=== PATIENT | male | born 1975 | race Caucasian/White ===

== ENCOUNTER → 2017-10-22 09:57 | Outpatient (CLI) | payer BC, SELFPAY ==
--- NOTE | 2017-10-22 10:10 | XR_ITS ---
EXAM: XR lumbar spine min 4V HISTORY: ITS.REASON: LBP RT SIDE ORDERING PHYSICIAN: Marlo Syed MD PATIENT AGE: 42 years COMPARISON: None FINDINGS: Normal alignment. No fracture or dislocation. No lytic or blastic change. There is mild degenerative disc disease at L2-L3. Small endplate osteophytes are present at this level. IMPRESSION: Degenerative disc disease L2-L3 otherwise negative lumbar spine
== END ==
PROVIDERS: PCP Family Medicine; Visit Provider Family Medicine
DX: M54.5 Low back pain (principal)
CPT/HCPCS: 72110

== ENCOUNTER 2017-11-29 13:24 | Observation (INO) ==
--- NOTE | 2017-11-29 13:31 | Emergency Department Note ---
ED Disposition Clinical Impression: Strain of lumbar region Qualifiers: Encounter type: initial encounter Qualified Code(s): S39.012A - Strain of muscle, fascia and tendon of lower back, initial encounter Sciatica Qualifiers: Laterality: right Qualified Code(s): M54.31 - Sciatica, right side Disposition: Admitted as Observation Condition on Discharge: Good Instructions: DI for Back Pain With Sciatica Additional Instructions: Rx Flexeril, Mobic: do NOT take Ibuprofen or Naproxen/Aleve with this medication ! Rx Medrol dosepak. See Dr. Trevino for any narcotics refills; you may take your narcotic pill up to four times a day unless otherwise instructed by the prescriber. Prescriptions: Cyclobenzaprine HCl [Flexeril 10mg tablet] 10 mg PO TID PRN #6 tab PRN Reason: Muscle Spasm Meloxicam [Mobic 7.5mg Tab] 7.5 mg PO BID #30 tab methylPREDNISolone [Medrol] 4 mg PO DAILY #1 tab.ds.pk methylPREDNISolone [Medrol] 4 mg PO DAILY #1 tab.ds.pk Referrals: Yisel Trevino MD [Primary Care Provider] - Time of Disposition: 15:07 - Critical Care Critical Care Time: No Attestation: On 11/29/17, the high probability of a clinically significant, sudden or life threatening deterioration of the following system(s) required my full and direct attention, intervention and personal management. The time I documented below is in addition to time spent performing reported procedures but includes the following listed in this critical care notation. Medical Decision Making - Aramis Inquiry Pt receiving controlled substance: No Vital Signs: 11/29/17 13:26 11/29/17 14:25 Temperature 97.6 F 98.7 F Temperature Source Oral Oral Pulse Rate [Right Radial] 76 69 Respiratory Rate 24 18 Blood Pressure [Right Arm] 160/92 163/105 Blood Pressure Mean [Right Arm] 114 124 Blood Pressure Source [Right Arm] Automatic Cuff Blood Pressure Position [Right Arm] Supine 02 Sat by Pulse Oximetry 99 98 Orders (Tests/Meds): ED MEDICATIONS Discontinued Medications Generic Name Dose Route Start Last Admin Trade Name Freq PRN Reason Stop Dose Admin Cyclobenzaprine HCl 10 mg 11/29/17 13:35 11/29/17 13:36 Flexeril 10mg Tablet PO 11/29/17 13:36 10 mg ONCE ONE Administration Cyclobenzaprine HCl 10 mg 11/29/17 13:32 11/29/17 13:48 Flexeril 10mg Tablet PO 11/29/17 13:33 Not Given ONCE ONE Lisinopril 10 mg 11/29/17 14:46 11/29/17 14:47 Zestril 10mg Tablet PO 11/29/17 14:47 10 mg ONCE ONE Administration Methylprednisolone Sodium Succinate 125 mg 11/29/17 13:42 11/29/17 13:49 Solu-Medrol 125mg/2ml Vial IM 11/29/17 13:43 125 mg ONCE ONE Administration Morphine Sulfate 4 mg 11/29/17 13:57 11/29/17 14:00 Morphine 4mg/Ml Syringe IM 11/29/17 13:58 4 mg ONCE ONE Administration Ondansetron HCl 4 mg 11/29/17 13:58 11/29/17 14:00 Zofran 4mg Odt SL 11/29/17 13:59 4 mg ONCE ONE Administration - Physician Consults Physician Consulted: Dr. Syed Reason -: Pt condition Comment/Response: Dr. Syed will contact care management: consideration for admission Reason -: Admission - Reevaluation(s) Time: 14:15 (No relief) Reevaluation #2: 7621: still no relief after having had NSAIDs [employer], muscle relaxant, narcotic with Zofran, steroids, flexion of legs. Patient having difficulty turning in bed due to pain and spasm. Remains neurologically intact; has been able to use urinal but unable to stand or walk due to pain level. Consideration for admission. Recent MRI per PCP office shows L4 ner root compression plus stenosis ; MRI was done at [place]. Additional Reevaluation(s): 15:06: patient still unable to ambulate, but is getting a small amount of relief s/p multiple meds given. Will go ahead and admit for pain control/ inability to ambulate. Is neurologically intact. Back Pain HPI - General Chief Complaint: Back Pain/Injury Stated Complaint: BACK PAIN Time Seen by Provider: 11/29/17 13:28 Mode of Arrival: EMS Source of Information: Patient Limitations: No Limitations - History of Present Illness HPI Narrative: Reports lower lumbar pain radiating to right leg and right foot/toes for the past several weeks; has already had an MRI per PCP Dr. Trevino and has a f/u appointment with Dr. Porter for evaluation next week. No acute changes. No loss of bowel or bladder function. Initial event was lifting at home; he is already on narcotics, out of muscle relaxers, took four Aleve this AM with no relief and having more spasms today. Denies syncope. Has intermittently been on steroids with a lot of relief. He is no longer on them now. Onset (ago): week(s) Duration: constant Similar Symptoms Previously: Yes Location: lumbar spine Severity: mild Quality: dull Radiation: right leg Relieving factors: supine Exacerbating factors: movement, sitting upright Context: while lifting Associated symptoms: denies other symptoms Treatments prior to arrival: NSAIDS, prescription analgesics - Related Data Previous Rx's Medication Instructions Recorded Cyclobenzaprine HCl [Flexeril 10mg 10 mg PO TID PRN #6 tab 11/29/17 tablet] Meloxicam [Mobic 7.5mg Tab] 7.5 mg PO BID #30 tab 11/29/17 methylPREDNISolone [Medrol] 4 mg PO DAILY #1 tab.ds.pk 11/29/17 methylPREDNISolone [Medrol] 4 mg PO DAILY #1 tab.ds.pk 11/29/17 Allergies Allergy/AdvReac Type Severity Reaction Status Date / Time amoxicillin Allergy Intermediate Rash Verified 11/29/17 13:32 [facility] History I have reviewed the patient's past medical history: Yes ROS Obtained: Yes All systems reviewed & no additional complaints - Musculoskeletal Musculoskeletal: Reports system reviewed and no additional complaints, except as docu - Neurologic Neurologic: Reports system reviewed and no additional complaints, except as docu Physical Exam - General General appearance: alert, in no apparent distress - Head Head exam: atraumatic, normocephalic, normal inspection - Eye Eye exam: Present: normal appearance, PERRL, EOMI - ENT ENT exam: Present: mucous membranes moist - Neck Neck exam: Present: normal inspection, full ROM, trachea midline. Absent: tenderness, meningismus, lymphadenopathy - Chest Chest inspection: Present: normal inspection, symmetric chest wall rise. Absent : tenderness - Respiratory Respiratory exam: Present: normal lung sounds bilaterally. Absent: respiratory distress - Cardiovascular Cardiovascular exam: Present: regular rate, normal rhythm. Absent: JVD - Abdominal Exam Abdominal exam: Present: soft, normal bowel sounds. Absent: distention, tenderness, guarding - Extremities Exam Extremities exam: Present: normal inspection, full ROM, normal capillary refill. Absent: tenderness, calf tenderness - Back Exam Back exam: Present: normal inspection, tenderness, muscle spasm, straight leg raise (R) (pos SLT on R). Absent: vertebral tenderness - Neurological Exam Neurological exam: Present: alert, oriented X3, reflexes normal. Absent: motor sensory deficit - Psychiatric Psychiatric exam: Present: normal affect, normal mood - Skin Skin exam: Present: warm, dry, intact, normal color - Lymphatic Lymphatic Findings: no adenopathy
--- NOTE | 2017-11-29 16:15 | History & Physical Report ---
*Admission Date: 11/29/17 <Donna Jim 11/29/17 16:20> *Chief complaint: low back pain <Donna Jim 11/29/17 16:20> *History of present illness: Mr. Sotelo is a 42yo male who was seen in the office of [facility] on 10/21/17 with low back pain with radiculopathy to the right leg. 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 He was given a rx for steroids and flexeril and an x-ray was ordered showing DDD. His pain continued, therefore he had an MRI that showed a moderate to large foraminal disc protrusion at L4-5 with right neural foraminal stenosis and compression of the right L4 nerve root. He was seen in the office again on 11/07 and started on zanaflex, indomethacin, and prednisone. A consult was ordered for neurosurgery , however, the neurosurgery office never contacted the patient. He came to the office again on 11/25/17 and was given norco and a depo-medrol shot. An appt was scheduled with Dr. Porter for 12/05/17. The patient states last night, the pain became so bad he was unable to walk. He presented to the ER today for severe pain and was admitted for pain control. <Donna Jim 12/02/17 14:43> [facility] History Medical History: Reports:: Hyperlipidemia, Hypertension Denies:: Cancer, Diabetes Mellitus Type 1, Diabetes Mellitus Type 2, MRSA < Donna Jim 11/29/17 16:20> Other Surgeries: Yes: Hernia Repair <Donna Jim 11/29/17 16:20> Amputation: No <Donna Jim 11/29/17 16:20> - *Social History Smoking Status: Current every day smoker <Donna Jim 11/29/17 16:20> Tobacco Type: cigarettes <Donna Jim 11/29/17 16:20> # Packs/Day (cigarettes): 2 <Donna Jim 11/29/17 16:20> Alcohol Intake: never <Donna Jim 11/29/17 16:20> - Psychiatric History Expresses thoughts of harming self/others: None <Donna Jim 11/29/17 16: 20> Suicide Plan Description: No Plan <Donna Jim 11/29/17 16:20> *Family Hx:: Cancer, Hypertension <Donna Jim 11/29/17 16:20> Review of Systems - Constitutional Denies chills, Denies fever(s) <Donna Jim 11/29/17 16:20> - Eyes Denies blurry vision, Denies double vision <Donna Jim 11/29/17 16:20> - ENT Denies nasal congestion, Denies sore throat <Donna Jim 11/29/17 16:20> - *Cardiovascular Denies chest pain, Denies irregular heart rhythm <Donna Jim 11/29/17 16: 20> - *Respiratory Reports shortness of breath, Denies cough <Donna Jim 11/29/17 16:20> - *Gastrointestinal Denies abdominal pain, Denies loose stools, Denies nausea, Denies vomiting < Donna Jim 11/29/17 16:20> - *Genitourinary Denies difficulty urinating, Denies painful urination <Donna Jim 16:20> - *Musculoskeletal Reports joint pain (low back with right radiculopathy) <Donna Jim 14:43> - *Neurologic Reports weakness (right leg), Denies headache(s), Denies dizziness <Donna Jim 11/29/17 16:20> Meds Home Medications Medication Instructions Recorded Confirmed Type Albuterol Sulfate [Albuterol HFA 2 puffs IH QIDP PRN 11/29/17 11/29/17 History Inhaler] Cetirizine HCl 10 mg PO DAILY 11/29/17 11/29/17 History Cholecalciferol (Vitamin D3) 50,000 units PO WEEKLY 11/29/17 11/29/17 History [Vitamin D3 50,000 unit Cap] Fluticasone Propionate 1 spray NOSTRIL-B DAILY 11/29/17 11/29/17 History Lisinopril/Hydrochlorothiazide 10 - 12.5 mg PO DAILY 11/29/17 11/29/17 History [Lisinopril-Hctz 10-12.5 mg Tab] Simvastatin 20 mg PO HS 11/29/17 11/29/17 History buPROPion HCl [Wellbutrin SR 150mg 150 mg PO BID 11/29/17 11/29/17 History Tablet] <KunalMarlo - 12/04/17 16:23> Allergies Allergy/AdvReac Type Severity Reaction Status Date / Time amoxicillin Allergy Intermediate Rash Verified 11/29/17 13:32 <KunalMarlo Swapnil - 12/04/17 16:23> Exam Vital signs and Labs for Last 24 Hours: Temp Pulse Resp BP Pulse Ox 98.3 F 81 20 134/64 96 11/29/17 20:00 11/29/17 20:00 11/29/17 20:00 11/29/17 20:00 11/29/17 20:00 <KunalMarlo Swapnil - 12/04/17 16:23> Temp Pulse Resp BP Pulse Ox 97.2 F L 65 22 162/99 98 11/29/17 16:00 11/29/17 16:00 11/29/17 16:00 11/29/17 16:00 11/29/17 16:00 <Donna Jim 11/29/17 16:20> I & O for Last 24 hours: Intake & Output 11/27/17 11/28/17 11/29/17 11/30/17 11:59 11:59 11:59 11:59 Weight 268 lb 8 oz <Marlo Syed - 12/04/17 16:23> Intake & Output 11/27/17 11/28/17 11/29/17 11/30/17 11:59 11:59 11:59 11:59 Weight 268 lb 8 oz <Donna Jim 11/29/17 16:20> - Constitutional moderate distress (in pain) <Donna Jim 11/29/17 16:20> - *Routine HEENT Exam Head: Present: normocephalic, atraumatic <Donna Jim 11/29/17 16:20> Eye: Present: EOMI <Donna Jim 11/29/17 16:20> ENT: Present: mucous membranes dry <Donna Jim 11/29/17 16:20> - *Routine Neck Exam Present: supple, full ROM <Donna Jim 11/29/17 16:20> - *Routine Respiratory Exam Present: CTA bilaterally <Donna Jim 11/29/17 16:20> - *Routine Cardiovascular Exam Present: RRR <Donna Jim 11/29/17 16:20> - *Routine Abdominal Exam Present: soft, normoactive bowel sounds. Absent: tenderness <Donna Jim 11/29/17 16:20> - *Routine Extremities Exam Absent: edema <Donna Jim 11/29/17 16:20> - Routine Back/Spine/Pelvis Exam Back/Spine: Present: vertebral tenderness (along lower lumbar spine), abnormal straight leg raise (on the right) <Donna Jim 12/02/17 14:43> - *Routine Skin Exam Present: intact <Donna Jim 11/29/17 16:20> - *Routine Neurological Exam Present: alert <Donna Jim 11/29/17 16:20> Assessment and Plan (1) Lumbar disc herniation with radiculopathy Status: Acute Category: Medical Code(s): M51.16 - Intervertebral disc disorders with radiculopathy, lumbar region (2) Uncontrolled pain Status: Acute Category: Medical Code(s): R52 - Pain, unspecified (3) Hypertension Status: Chronic Category: Medical Code(s): I10 - Essential (primary) hypertension (4) Hyperlipidemia Status: Chronic Category: Medical Code(s): E78.5 - Hyperlipidemia, unspecified <Donna Jim 12/02/17 14:42> (1) Lumbar disc herniation with radiculopathy Status: Acute Category: Medical Code(s): M51.16 - Intervertebral disc disorders with radiculopathy, lumbar region (2) Uncontrolled pain Status: Acute Category: Medical Code(s): R52 - Pain, unspecified (3) Hypertension Status: Chronic Category: Medical Code(s): I10 - Essential (primary) hypertension (4) Hyperlipidemia Status: Chronic Category: Medical Code(s): E78.5 - Hyperlipidemia, unspecified <Marlo Syed 12/04/17 16:23> - Assessment and plan all Dx Assessment and Plan for all problems:: Concur with above assessment and plan. <Marlo Syed - 11/29/17 21:07> Patient has been started on morphine, toradol, flexeril, and a nicotine patch. Will restart his BP medication as well. <Donna Jim - 11/29/17 16:20>
--- NOTE | 2017-11-30 08:58 | Progress Note ---
Internal Medicine - PN: Subj *Date: 11/30/17 *Time: 08:53 Interval history: Rested fairly well with much less pain. Only required one dose of Morphine during the night. Has been up to BR and able to ambulate OK. Exam Vital signs and Labs for Last 24 Hours: Temp Pulse Resp BP Pulse Ox 97.4 F L 84 16 135/58 95 11/30/17 08:00 11/30/17 08:00 11/30/17 08:00 11/30/17 08:00 11/30/17 08:00 I & O for Last 24 hours: Intake & Output 11/27/17 11/28/17 11/29/17 11/30/17 11:59 11:59 11:59 11:59 Intake Total 280 / 280 Balance 280 / 280 Weight 268 lb 8 oz - Constitutional no acute distress - Routine Back/Spine/Pelvis Exam Comments: mild tenderness in rigth SI area. ROM improved - *Routine Neurological Exam no focal weakness Assessment and Plan (1) Lumbar disc herniation with radiculopathy Current visit: Yes Status: Acute Category: Medical Code(s): M51.16 - Intervertebral disc disorders with radiculopathy, lumbar region (2) Uncontrolled pain Current visit: Yes Status: Acute Category: Medical Code(s): R52 - Pain, unspecified (3) Hypertension Current visit: Yes Status: Chronic Category: Medical Code(s): I10 - Essential (primary) hypertension (4) Hyperlipidemia Current visit: Yes Status: Chronic Category: Medical Code(s): E78.5 - Hyperlipidemia, unspecified - Assessment and plan all Dx Assessment and Plan for all problems:: Pain improved after steroids. Stable for discharge home today. He will keep appt with Dr. Porter on to evaluate for surgery. His job is fairly sedentary working at a desk. SHould be OK to RTW on Saturday.
--- NOTE | 2017-12-01 15:26 | Discharge Summary ---
General - General Admission date: 11/29/17 Discharge date: 11/30/17 HPI HPI: Mr. Sotelo is a 42yo male who was seen in the office of [facility] on 10/21/17 with low back pain with radiculopathy to the right leg. 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 He was given a rx for steroids and flexeril and an x-ray was ordered showing DDD. His pain continued, therefore he had an MRI that showed a moderate to large foraminal disc protrusion at L4-5 with right neural foraminal stenosis and compression of the right L4 nerve root. He was seen in the office again on 11/07 and started on zanaflex, indomethacin, and prednisone. A consult was ordered for neurosurgery , however, the neurosurgery office never contacted the patient. He came to the office again on 11/25/17 and was given norco and a depo-medrol shot. An appt was scheduled with Dr. Porter for 12/05/17. The patient states last night, the pain became so bad he was unable to walk. He presented to the ER today for severe pain and was admitted for pain control. Hospital Course Hospital Course: The patient was started on morphine, toradol, flexeril, and a nicotine patch. His BP medication was restarted as well. He rested fairly well with much less pain. He only required one dose of the Morphine during the night. He was able to ambulate okay. His pain improved after the steroids and he was stable for discharge home. He will keep his appt with Dr. Porter on to evaluate for surgery. Objective Vital signs: Temp Pulse Resp BP Pulse Ox 97.4 F L 84 16 135/58 95 11/30/17 08:00 11/30/17 08:00 11/30/17 08:00 11/30/17 08:00 11/30/17 08:00 Narrative: - Constitutional moderate distress (in pain) - *Routine HEENT Exam Head: Present: normocephalic, atraumatic Eye: Present: EOMI ENT: Present: mucous membranes dry - *Routine Neck Exam Present: supple, full ROM - *Routine Respiratory Exam Present: CTA bilaterally - *Routine Cardiovascular Exam Present: RRR - *Routine Abdominal Exam Present: soft, normoactive bowel sounds. Absent: tenderness - *Routine Extremities Exam Absent: edema - Routine Back/Spine/Pelvis Exam Back/Spine: Present: vertebral tenderness (along lower lumbar spine), abnormal straight leg raise (on the right) - *Routine Skin Exam Present: intact - *Routine Neurological Exam Present: alert DS: Diagnosis - Discharge Diagnosis (1) Lumbar disc herniation with radiculopathy Status: Acute (2) Uncontrolled pain Status: Acute (3) Hypertension Status: Chronic (4) Hyperlipidemia Status: Chronic Discharge Plan - Patient Discharge Instructions ACTIVITY: Limited activity, No heavy lifting DIET: continue same diet Patient Instructions: DI for Back Pain With Sciatica - Follow up Plan Follow up with: Kamran Porter [Referring] - 12/05/17 Disposition: Home, Self-[facility] Medications: Home Medications Medication Instructions Recorded Confirmed Type Albuterol Sulfate [Albuterol HFA 2 puffs IH QIDP PRN 11/29/17 11/29/17 History Inhaler] Cetirizine HCl 10 mg PO DAILY 11/29/17 11/29/17 History Cholecalciferol (Vitamin D3) 50,000 units PO WEEKLY 11/29/17 11/29/17 History [Vitamin D3 50,000 unit Cap] Fluticasone Propionate 1 spray NOSTRIL-B DAILY 11/29/17 11/29/17 History Lisinopril/Hydrochlorothiazide 10 - 12.5 mg PO DAILY 11/29/17 11/29/17 History [Lisinopril-Hctz 10-12.5 mg Tab] Simvastatin 20 mg PO HS 11/29/17 11/29/17 History buPROPion HCl [Wellbutrin SR 150mg 150 mg PO BID 11/29/17 11/29/17 History Tablet] Prescriptions/Medication Reconciliation: New predniSONE [Prednisone 20mg Tab] 20 mg PO BID #12 tab Tizanidine HCl [Zanaflex] 4 mg PO TID #30 tablet Oxycodone HCl/Acetaminophen [Percocet 5/325mg tablet] 1 tab PO Q4HP PRN #20 tablet PRN Reason: Severe Pain Continue Fluticasone Propionate 1 spray NOSTRIL-B DAILY Cetirizine HCl 10 mg PO DAILY buPROPion HCl [Wellbutrin SR 150mg Tablet] 150 mg PO BID Albuterol Sulfate [Albuterol HFA Inhaler] 2 puffs IH QIDP PRN PRN Reason: Shortness Of Breath Cholecalciferol (Vitamin D3) [Vitamin D3 50,000 unit Cap] 50,000 units PO WEEKLY Simvastatin 20 mg PO HS Lisinopril/Hydrochlorothiazide [Lisinopril-Hctz 10-12.5 mg Tab] 10 - 12.5 mg PO DAILY Discontinued Hydrocod/Acet 5/325 mg [Shingleton 5/325mg tablet] 5 - 325 mg PO TID PRN PRN Reason: PAIN Indomethacin [Indomethacin] 50 mg PO TID
== END 2017-11-30 09:28 | disposition home or self-care (01) ==
LOC: ER 13:24 → 2ND 13:24
PROVIDERS: ADMIT Family Medicine; ATTEND Family Medicine

== ENCOUNTER → 2017-12-05 14:27 | Outpatient (POV) | payer BC, SELFPAY | PROVIDERS: PCP Family Medicine; Visit Provider Neurological Surgery | DX: Z00.00 Encounter for general adult medical examination without abnormal findings (principal) ==

== ENCOUNTER → 2021-04-26 16:43 | Outpatient (CLI) | payer BC, SELFPAY ==
[2021-04-26 17:18] LABS: Basophils # 0.1 K/mm3 (0-0.2); Basophils % 0.9 % (0.1-2.0); Eosinophils # 0.3 K/mm3 (0.0-0.4); Eosinophils % 4.1 % (0.1-12.0); Hematocrit 43.4 % (42.0-52.0); Hemoglobin 14.6 g/dL (14.1-18.0); Lymphocytes # 2.4 K/mm3 (0.7-4.5); Lymphocytes % 30.2 % (10-50); Mean Corpuscular HGB Conc 33.7 g/dL (31.8-35.4); Mean Corpuscular Hemoglobin 30.8 pg (27.0-31.2); Mean Corpuscular Volume 91.6 fl (80-94); Mean Platelet Volume 8.1 fl (7.4-10.4); Monocytes # 0.6 K/mm3 (0.1-1.0); Monocytes % 7.4 % (1.7-9.3); Neutrophils # 4.6 K/mm3 (1.8-7.8); Neutrophils % 57.4 % (37.0-80.0); Platelet Count 400 K/mm3 (142-424); Red Blood Count 4.74 M/mm3 (4.60-6.20); Red Cell Distribution Width 13.7 % (11.5-17.5); White Blood Count 7.9 K/mm3 (4.8-10.8)
== END ==
PROVIDERS: PCP Family Medicine; Visit Provider Nurse Practitioner
DX: Z20.822 Contact with and (suspected) exposure to COVID-19 (principal)
CPT/HCPCS: 85025; 87275; 87276; U0003

== ENCOUNTER → 2021-09-11 11:14 | Outpatient (CLI) | payer BC, SELFPAY ==
[2021-09-11 12:25] LABS: Basophils # 0.1 K/mm3 (0-0.2); Basophils % 1.8 % (0.1-2.0); Eosinophils # 0.1 K/mm3 (0.0-0.4); Eosinophils % 2.3 % (0.1-12.0); Hematocrit 47.1 % (42.0-52.0); Hemoglobin 15.4 g/dL (14.1-18.0); Lymphocytes # 1.1 K/mm3 (0.7-4.5); Lymphocytes % 19.1 % (10-50); Mean Corpuscular HGB Conc 32.8 g/dL (31.8-35.4); Mean Corpuscular Hemoglobin 30.8 pg (27.0-31.2); Mean Corpuscular Volume 93.9 fl (80-94); Mean Platelet Volume 7.6 fl (7.4-10.4); Monocytes # 0.8 K/mm3 (0.1-1.0); Monocytes % 13.5 % (1.7-9.3); Neutrophils # 3.6 K/mm3 (1.8-7.8); Neutrophils % 63.3 % (37.0-80.0); Platelet Count 326 K/mm3 (142-424); Red Blood Count 5.02 M/mm3 (4.60-6.20); Red Cell Distribution Width 13.7 % (11.5-17.5); White Blood Count 5.7 K/mm3 (4.8-10.8)
== END ==
PROVIDERS: PCP Family Medicine; Visit Provider Family Medicine
DX: U07.1 COVID-19 (principal)
CPT/HCPCS: 36415; 85025; 87275; 87276; C9803; U0003; U0005

== ENCOUNTER 2022-05-02 18:33 | Emergency (ER) | payer BC, SELFPAY ==
--- NOTE | 2022-05-02 19:22 | EXP.UTC ---
Discharge Plan Disposition Patient Disposition: Home, Self-Care Condition: Good Prescriptions Prescriptions: New azithromycin [Zithromax] 250 mg tablet 250 mg PO UD DOSE PK Qty: 6 0RF Rx Instructions: Take two (2) tablets today, then one (1) tablet days #2 thru #5 benzonatate [benzonatate] 100 mg capsule 100 mg PO TIDP PRN (Reason: Cough) Qty: 30 0RF methylprednisolone 4 mg Tablets,Dose Pack 4 mg PO DIRECTED Qty: 21 0RF No Action cefdinir 300 mg capsule 300 mg PO BID 10 Days Qty: 20 0RF moxifloxacin 0.5 % drops 1 drp OP TID 7 Days Qty: 3 0RF lisinopril-hydrochlorothiazide 1 EACH tablet 10 - 12.5 mg PO DAILY cetirizine 10 MG tablet 10 mg PO DAILY Label Comments: TAKE 1 TABLET BY MOUTH EVERY DAY simvastatin 20 MG tablet 20 mg PO HS Label Comments: TAKE 1 TABLET BY MOUTH AT BEDTIME albuterol sulfate 18 GM HFA aerosol inhaler 2 puffs IH QIDP PRN (Reason: Shortness Of Breath) Label Comments: USE 2 PUFF(S) 4 TIMES A DAY AND NEEDED INHALED Referrals Follow up/Referrals: Kamilah Carvalho APRN [Primary Care Provider] - See instructions Activity Restrictions/Add. Instructions Additional Instructions/Restrictions: Drink plenty of fluids. Take tylenol or ibuprofen for pain or fever. Take the medications as directed. Follow up with your regular doctor. GO TO THE ER FOR ANY WORSENING SYMPTOMS Clinical Impressions Clinical Impression: Sinusitis Instructions Patient Instructions: Sinusitis, DI for Sinusitis Discharge ED Provider: Jonathan Lamar [facility] General Stated complaint: Cough,runny nose Time Seen by Provider: 05/02/22 19:22 History of Present Illness Provider Complaint: He is here with complaints of having chest and sinus congestion for the past 1 week. He has been coughing. He denies any fever or chills. Related Data Home Medications Medication Instructions Recorded Confirmed albuterol sulfate 90 mcg/actuation 2 puffs inhalation QIDP PRN 11/29/17 03/12/22 aerosol inhaler Shortness Of Breath cetirizine 10 mg tablet 10 mg PO DAILY ALLERGIES 11/29/17 03/12/22 lisinopril 10 10 - 12.5 mg PO DAILY High blood 11/29/17 03/12/22 mg-hydrochlorothiazide 12.5 mg pressure tablet simvastatin 20 mg tablet 20 mg PO HS Cholesterol 11/29/17 03/12/22 Previous Rx's Medication Instructions Recorded cefdinir 300 mg capsule 300 mg PO BID 10 days #20 caps 03/12/22 moxifloxacin 0.5 % eye drops 1 drp ophthalmic (eye) TID 7 days 03/12/22 #3 mL azithromycin 250 mg tablet 250 mg PO UD DOSE PK #6 tabs 05/02/22 (Zithromax) benzonatate 100 mg capsule 100 mg PO TIDP PRN Cough #30 caps 05/02/22 methylprednisolone 4 mg tablets in 4 mg PO DIRECTED #21 tabs 05/02/22 a dose pack Allergies Allergy/AdvReac Type Severity Reaction Status Date / Time No Known Allergies Allergy Verified 05/02/22 19:55 [facility] Social History Smoking Status: Current every day smoker tobacco type: cigarettes packs per day: 2 second hand exposure: Yes alcohol intake: never substance use type: denies use current occupational status: employed Travel in the last 8 weeks: None household members: spouse and children housing: house current occupational exposures/hazards: No caffeine: Yes ROS Obtained: Yes All systems reviewed & no additional complaints except as documented Constitutional Constitutional: Reports system reviewed and no additional complaints, except as documented, Denies chills and Denies fever(s) Eyes Eyes: Denies eye discharge ENT Ears, Nose, Mouth, and Throat: Denies dysphagia, Denies sore throat and Denies throat swelling Cardiovascular Cardiovascular: Denies chest pain and Denies dyspnea Respiratory Respiratory: Denies chest congestion, Denies cough and Denies dyspnea Gastrointestinal Gastrointestingal: Denies abdominal pain, constipation, diarr
[2022-05-02 19:42] VITALS: BP 127/80; PULSE 81; RESP 17; TEMP 36.7; O2SAT 97; BMI 38.0
[2022-05-02 20:12] VITALS: BP 127/80; PULSE 81; RESP 17; TEMP 36.7
== END 2022-05-02 20:12 | disposition home or self-care (01) ==
PROVIDERS: Emergency Provider Nurse Practitioner Family; PCP Nurse Practitioner
DX: J32.9 Chronic sinusitis, unspecified (principal)
CPT/HCPCS: 96372; 99212; G0463; J0696

== ENCOUNTER → 2022-10-16 23:35 | Outpatient (CLI) | payer BC, SELFPAY ==
[2022-10-16 19:04] LABS: Alanine Aminotransferase 51 U/L (12-78); Albumin Level 4.6 g/dl (3.5-5.0); Albumin/Globulin Ratio 1.5 (1.1-1.8); Alkaline Phosphatase 87 U/L (38-126); Anion Gap 5.3 mEq/L (5-15); Aspartate Amino Transferase 51 U/L (17-59); Bilirubin,Total 0.7 mg/dl (0.2-1.3); Blood Urea Nitrogen 10 mg/dl (9-20); Calcium 9.7 mg/dl (8.4-10.2); Carbon Dioxide 28 mmol/L (22.0-30.0); Chloride 106 mmol/L (98-107); Estimated Glomerular Filt Rate 91 ml/min (>60); GFR (African American) 110 ML/MIN (>60); Globulin 3.1 g/dL (1.3-3.2); Glucose 86 mg/dl (74-100); Potassium 4.3 mmoL/L (3.5-5.1); Sodium 135 mmol/L (136-145); Total Protein,Serum 7.7 g/dl (6.3-8.2)
[2022-10-16 19:35] LABS: Thyroid Stimulating Hormone 1.28 uIU/mL (0.465-4.68)
[2022-10-16 19:54] LABS: Vitamin B12 487 pg/mL (239-931)
== END ==
PROVIDERS: PCP Family Medicine; Visit Provider Family Medicine
DX: R53.83 Other fatigue (principal); I10 Essential (primary) hypertension
CPT/HCPCS: 80053; 82607; 84443

== ENCOUNTER → 2022-10-31 06:55 | Outpatient (CLI) | payer BC, SELFPAY ==
--- NOTE | 2022-10-31 06:56 | CA_ITS ---
APPROVED REPORT Exam: Exercise Treadmill Technologist: Danyell Adorno Ht: 6 ft 0 in Wt: 296 lbs BSA: 2.52 m2 HR: 67 bpm BP: 147/89 mmHg Indications: Chest pain, Fatigue Medical History Medications: Albuterol,,,,, CetIRIZINE,,,,, Lisinopril HCTZ,,,,, Stress Test Details Test: Raymond HR Resting HR: 79 bpm Max Heart Rate (APMHR): 174.820541 bpm Max HR Achieved: 128 bpm Target HR (85% APMHR): 147.354796 bpm % of APMHR: 73.56 Recovery HR: 79 bpm BP Resting BP: 147.0/89.0 mmHg Max BP: 212.0/90.0 mmHg Recovery BP: 160.0/99.0 mmHg ECG Resting ECG: Normal sinus rhythm, rightward axis, T wave abnormalities in leads III and aVF Clinical Exercise duration: 09:00 min Highest Stage Achieved: Exercise capacity: 10.1 METs Stress ECG Conclusion Patient walked 9:00 completing stage III of Brruce protocol. Test stopped due to shortness of air, knee pain. Symptoms: No chest pain. Arrhythmias/Ectopy: None ST-T Changes: Normal ST response to exercise. Conclusion: Normal GXT for heart rate achieved (74% of PM). Myoview images reported separately. Test Summary REST . . . . . . . Sitting REST . . . . . . . Standing REST 03:00 0.0 0.0 79 . 147/ 89 . . Stage 1 01:00 10.0 1.7 95 . . . . Stage 1 02:00 10.0 1.7 99 . . . . Stage 1 03:00 10.0 1.7 102 . 192/ 90 . . Stage 2 01:00 12.0 2.5 105 . . . . Stage 2 02:00 12.0 2.5 108 . . . . Stage 2 03:00 12.0 2.5 114 . 212/ 90 . . Stage 3 01:00 14.0 3.4 121 . . . . Stage 3 02:00 14.0 3.4 128 . . . . Stage 3 03:00 14.0 3.4 127 . . . Stop exercise at 09:00 RECOVERY 01:00 0.0 0.0 113 . . . . RECOVERY 02:00 0.0 0.0 98 . . . . RECOVERY 03:00 0.0 0.0 84 . 182/102 . . RECOVERY 04:00 0.0 0.0 85 . 182/ 99 . . RECOVERY 05:00 0.0 0.0 78 . 160/ 99 . . RECOVERY 05:18 0.0 0.0 80 . 160/ 99 . . Electronically signed by : Alvaro Petersen MD 10/31/2022 11:44:07
--- NOTE | 2022-10-31 06:56 | NM_ITS ---
APPROVED REPORT Exam: Nuclear Stress Test Indication: short of breath..fatigue Patient Location: Outpatient Stress Tech: Danyell Adorno MA Tech:VALENTÍN Chisholm RT(R)(N) Ht: 6 ft 0 in Wt: 290 lbs HR: 79 bpm BP: 147/89 mmHg BSA: 2.49 m2 TID: 0.94 History: short of breath ..fatigue Procedure: Patient exercised on Raymond protocol 9 minutes and sec, resting heart rate 79 bpm, resting blood pressure 147/89 mmHg, with exercise maximum heart rate achived was 128 bpm which is 74 % of the maximum predicted heart rate and blood pressure was 212/90 mmHg. Test was stopped due to soc. Patient denied any complaint of chest pain. Patient has Good exercise capacity, achieved 10.1 METs of workload on treadmill, the blood pressure response to exercise was Hypertensive. Electrocardiogram Resting electrocardiogram shows sinus rhythm, with exercise there is less than 1.[address] segment depression noted from the baseline EKG. The EKG portion of the exercise Myoview was nondiagnostic as patient did not achieve the target heart rate. Cardiac Stress and Resting SPECT Images: Cardiac Stress and Resting SPECT images were obtained using technetium 99m Myoview 30.9 mCi stress and 10.25 mCi at rest. Gated SPECT analysis of segmental wall motion and calculation of the ejection fraction also done. Prone images were also obtained. Cardiac stress and rest SPECT images show uniform myocardial activity without segmental perfusion abnormality, computer derived ejection fraction is 65% with no regional wall motion abnormality, right ventricle is normal size and contractility. Conclusion: 1. The EKG portion of the exercise Myoview is nondiagnostic as patient did not achieve the target heart rate, patient has good exercise capacity achieved 10.1 METs of workload on treadmill, the blood pressure response to exercise was hypertensive, there was no exercise-induced chest discomfort. 2. No scintigraphic evidence of reversible ischemia seen, computer derived ejection fraction is 65% with no regional wall motion abnormality, right ventricle is normal size and contractility. Electronically signed by : Alvaro Petersen MD 10/31/2022 12:30:45
== END ==
PROVIDERS: PCP Family Medicine; Visit Provider Family Medicine
DX: R07.9 Chest pain, unspecified (principal); R53.83 Other fatigue
CPT/HCPCS: 78452; 93017; A9502

== ENCOUNTER → 2022-11-16 16:39 | Outpatient (CLI) | payer BC, SELFPAY ==
--- NOTE | 2022-11-20 09:48 | PC.NURSE ---
HST DEVICE RETURNED - NOT ENOUGH DATA - THEREFORE NO CHARGE TO PATIENT - OFFICE NOTIFIED...
== END ==
PROVIDERS: PCP Family Medicine; Visit Provider Family Medicine
DX: G47.30 Sleep apnea, unspecified (principal)

== ENCOUNTER 2023-01-28 11:33 | Emergency (ER) | payer BC, SELFPAY ==
[2023-01-28 11:33] VITALS: BP 147/90; PULSE 77; RESP 16; TEMP 36.8; O2SAT 97; BMI 38.0
--- NOTE | 2023-01-28 11:43 | EXP.UTC ---
Discharge Plan Disposition Patient Disposition: Home, Self-Care Condition: Good Prescriptions Prescriptions: New benzonatate 100 mg capsule 100 mg PO TID PRN (Reason: cough) Qty: 30 0RF methylprednisolone [Medrol (Simone)] 4 mg tablets,dose pack See Rx Instructions .Route .COMPLEX 6 Days Qty: 21 0RF Rx Instructions: taper pack; amoxicillin-pot clavulanate 875-125 mg Tablet 1 tab PO Q12H Qty: 20 0RF No Action lisinopril-hydrochlorothiazide 10-12.5 mg tablet 1 tab PO DAILY Qty: 90 1RF clotrimazole-betamethasone 1-0.05 % cream 1 applic topical BID Qty: 60 1RF cetirizine 10 mg tablet See Rx Instructions .ROUTE .COMPLEX Qty: 90 3RF Dose Instruction: TAKE 1 TABLET BY MOUTH EVERY DAY FOR 90 DAYS Rx Instructions: TAKE 1 TABLET BY MOUTH EVERY DAY FOR 90 DAYS albuterol sulfate 18 GM HFA aerosol inhaler 2 puffs IH QIDP PRN (Reason: Shortness Of Breath) Label Comments: USE 2 PUFF(S) 4 TIMES A DAY AND NEEDED INHALED Referrals Follow up/Referrals: Yisel Trevino MD [Primary Care Provider] - See instructions Activity Restrictions/Add. Instructions Additional Instructions/Restrictions: *Monitor Temp, Over the counter Motrin or Tylenol as directed/as needed Tylenol every 4 hours and Motrin every 6 hours (as long as your family doctor has told you that you can take it) for fever or pain. and straight to ER if unable to lower temp less than 101.0 after medication given *Warm salt water gargles may help to soothe the throat *Throat Lozenges? *Warm fluids like tea with honey may help to soothe the throat? *Sleep elevated *Humidifier/Vaporizer Take medication as prescribed Follow up IMMEDIATELY for new or worsening symptoms or no Noticeable improvement over the next 48-72 hours. 911 for difficulty breathing or swallowing Clinical Impressions Clinical Impression: Sinusitis, Bronchitis Instructions Patient Instructions: DI for Sinusitis, Sinusitis, Acute Bronchitis Discharge ED Provider: Rosalinda Marroquin [facility] General Stated complaint: head and chest congestion Mode of Arrival: Ambulatory Source of Information: Patient Limitations: No Limitations Time Seen by Provider: 01/28/23 11:43 Description of Symptoms (Recalled from Triage Doc. by RN): Patient reports chest and sinus congestion since Saturday. HEENT Symptoms (Recalled from RN notes): Yes Resp Symptoms (Recalled from RN notes): No Skin Symptoms (Recalled from RN notes): No MS Symptoms (Recalled from RN notes): No Functional Status (Recalled from RN notes): wnl History of Present Illness Provider Complaint: Patient states that he started with sinus congestion and pressure about a week ago but got worse since Saturday States that he feels like it is trying to move into his chest area States that he has been blowing thick yellowish/green from his nose Denies productive cough and is an everyday smoker Related Data Home Medications Medication Instructions Recorded Confirmed albuterol sulfate 90 mcg/actuation 2 puffs inhalation QIDP PRN 11/29/17 01/15/23 aerosol inhaler Shortness Of Breath Previous Rx's Medication Instructions Recorded cetirizine 10 mg tablet See Rx Instructions .Route 01/11/23 .COMPLEX #90 tabs clotrimazole-betamethasone 1 1 applic topical BID foot 01/15/23 %-0.05 % topical cream dermatitis #60 grams lisinopril 10 1 tab PO DAILY High blood pressure 01/15/23 mg-hydrochlorothiazide 12.5 mg #90 tabs tablet amoxicillin 875 mg-potassium 1 tab PO Q12H #20 tabs 01/28/23 clavulanate 125 mg tablet benzonatate 100 mg capsule 100 mg PO TID PRN cough #30 caps 01/28/23 methylprednisolone 4 mg tablets in See Rx Instructions .Route 01/28/23 a dose pack (Medrol (Simone)) .COMPLEX 6 days #21 tabs Allergies Allergy/AdvReac Type Severity Reaction Status Date / Time No Known Allergies Allergy Verified 01/15/23 10:17 Worker's Comp Is this a Worker's Co
[2023-01-28 12:00] VITALS: BP 147/90; PULSE 77; RESP 16; TEMP 36.8; O2SAT 97
== END 2023-01-28 12:01 | disposition home or self-care (01) ==
PROVIDERS: Emergency Provider Nurse Practitioner; PCP Family Medicine
DX: J20.9 Acute bronchitis, unspecified (principal); J01.90 Acute sinusitis, unspecified; F17.210 Nicotine dependence, cigarettes, uncomplicated
CPT/HCPCS: 99212; 99214; G0463

== ENCOUNTER → 2023-02-01 18:08 | Outpatient (CLI) | payer BC, SELFPAY ==
--- NOTE | 2023-02-01 | XR_ITS ---
PROCEDURE INFORMATION: Exam: XR Chest Exam date and time: 02/01/2023 6:19 PM Age: 47 years old Clinical indication: Cough; Additional info: Bronchitis TECHNIQUE: Imaging protocol: Radiologic exam of the chest. Views: 2 views. COMPARISON: No relevant prior studies available. FINDINGS: Lungs: Normal pulmonary expansion. Pulmonary vasculature grossly normal. A 5 mm nodular density projects in the lateral left basilar distribution. Can not definitively confirm calcification radiographically. Recommend nonemergent noncontrast CT. No gross pulmonary infiltrates or edema pattern. Question mild central peribronchial thickening suspicious for mild changes of bronchitis/bronchiolitis. Pleural spaces: No pleural effusion. No pneumothorax. Heart/Mediastinum: Heart size normal. No tracheal/mediastinal shift. Bones/joints: No acute osseous abnormalities are identified. IMPRESSION: 1. Question mild changes of bronchitis. No gross pulmonary infiltrates. 2. There is a 5 mm nodular density projecting in the peripheral left lung base. Recommend nonemergent evaluation with noncontrast chest CT.
== END ==
LOC: RAD 18:09
PROVIDERS: PCP Family Medicine; Visit Provider Family Medicine
DX: J40 Bronchitis, not specified as acute or chronic (principal)
CPT/HCPCS: 71046

== ENCOUNTER → 2023-02-02 09:12 | Outpatient (CLI) | payer BC, SELFPAY ==
[2023-02-01 17:39] LABS: Adenovirus,PCR Not Detected (NotDetected); Bordetella Pertussis Not Detected (NotDetected); Chlamydophila Pneumoniae, PCR Not Detected (NotDetected); Coronavirus 19, PCR Not Detected (NotDetected); Coronavirus 229E Not Detected (NotDetected); Coronavirus NL63 Not Detected (NotDetected); Coronavirus OC43 Not Detected (NotDetected); Coronovirus HKU1,PCR Not Detected (NotDetected); Human Metapneumovirus Not Detected (NotDetected); Influenza A, PCR Not Detected (NotDetected); Influenza AH1, 2009 Not Detected (NotDetected); Influenza AH1, PCR Not Detected (NotDetected); Influenza AH3,PCR Not Detected (NotDetected); Influenza B, PCR Not Detected (NotDetected); Mycoplasma Pneumoniae, PCR Not Detected (NotDetected); Parainfluenza 1, PCR Not Detected (NotDetected); Parainfluenza 2, PCR Not Detected (NotDetected); Parainfluenza 3, PCR Not Detected (NotDetected); Parainfluenza 4, PCR Not Detected (NotDetected); Respiratory Syncytial Virus Not Detected (NotDetected); Rhinovirus/Enterovirus Not Detected (NotDetected)
[2023-02-01 17:53] LABS: Basophils # 0.1 K/mm3 (0-0.2); Basophils % 0.4 % (0.1-2.0); Eosinophils # 0.2 K/mm3 (0.0-0.4); Eosinophils % 1.5 % (0.1-12.0); Hematocrit 49.1 % (42.0-52.0); Hemoglobin 16.2 g/dL (14.1-18.0); Lymphocytes # 4.3 K/mm3 (0.7-4.5); Lymphocytes % 30.3 % (10-50); Mean Corpuscular HGB Conc 33.1 g/dL (31.8-35.4); Mean Corpuscular Hemoglobin 29.6 pg (27.0-31.2); Mean Corpuscular Volume 89.5 fl (80-94); Mean Platelet Volume 7.7 fl (7.4-10.4); Monocytes # 0.9 K/mm3 (0.1-1.0); Monocytes % 6.4 % (1.7-9.3); Neutrophils # 8.8 K/mm3 (1.8-7.8); Neutrophils % 61.4 % (37.0-80.0); Platelet Count 397 K/mm3 (142-424); Red Blood Count 5.48 M/mm3 (4.60-6.20); Red Cell Distribution Width 13.7 % (11.5-17.5); White Blood Count 14.3 K/mm3 (4.8-10.8)
== END ==
LOC: LAB.DROPOF 09:12
PROVIDERS: PCP Family Medicine; Visit Provider Family Medicine
DX: J40 Bronchitis, not specified as acute or chronic (principal)
CPT/HCPCS: 85025; 87581; 87632; 87798; C9803; U0003; U0005

== ENCOUNTER → 2023-02-13 07:14 | Outpatient (CLI) | payer BC, SELFPAY ==
--- NOTE | 2023-02-13 07:15 | CT_ITS ---
FINAL REPORT TECHNIQUE: Axial CT images were performed from the lung apices through the upper abdomen. Coronal reformats were submitted. This study was performed with techniques to keep radiation doses as low as reasonably achievable (ALARA). Individualized dose reduction techniques using automated exposure control or adjustment of mA and/or kV according to the patient's size were employed. CLINICAL HISTORY: abnormal CXR, smoker FINDINGS: There is no axillary adenopathy. There are small mediastinal nodes. Heart size is normal. There is no pericardial or pleural effusion. No suspicious infiltrate or nodule is identified on lung window images. There is a 4 mm calcified granuloma in the left lower lobe. Limited images of the upper abdomen show a fatty liver. IMPRESSION: No acute process. Reviewed, Interpreted and Dictated by Papito Mendoza III, MD Transcribed by Kimi Pearl Authenticated and [facility]
== END ==
PROVIDERS: PCP Nurse Practitioner; Visit Provider Family Medicine
DX: R91.1 Solitary pulmonary nodule (principal); R93.89 Abnormal findings on diagnostic imaging of other specified body structures
CPT/HCPCS: 71250

== ENCOUNTER → 2023-04-15 23:43 | Outpatient (CLI) | payer BC, SELFPAY | PROVIDERS: PCP Family Medicine; Visit Provider Nurse Practitioner | DX: R31.9 Hematuria, unspecified (principal) | CPT/HCPCS: 87086 ==

== ENCOUNTER → 2023-04-18 06:53 | Outpatient (CLI) | payer BC, SELFPAY ==
--- NOTE | 2023-04-18 06:57 | US_ITS ---
FINAL REPORT TECHNIQUE: Ultrasound images of the kidneys and bladder were obtained. CLINICAL HISTORY: blood in urine FINDINGS: The right kidney measures 11.9 cm in length. It is normal in echogenicity. There is no hydronephrosis. The left kidney measures 12.6 cm in length. It is normal in echogenicity. There is no hydronephrosis. The spleen is unremarkable. There is diffuse fatty infiltration of the liver. IMPRESSION: Fatty liver. Reviewed, Interpreted and Dictated by Rafal Knight MD Transcribed by Kimi Pearl Authenticated and [facility]
== END ==
PROVIDERS: PCP Family Medicine; Visit Provider Nurse Practitioner
DX: R31.9 Hematuria, unspecified (principal)
CPT/HCPCS: 76770

== ENCOUNTER 2023-05-24 18:51 | Emergency (ER) | payer BC, SELFPAY ==
[2023-05-24 18:51] VITALS: BP 138/77; PULSE 73; RESP 18; TEMP 36.8; O2SAT 96; BMI 37.3
--- NOTE | 2023-05-24 18:54 | EXP.UTC ---
Discharge Plan Disposition Patient Disposition: Home, Self-Care Condition: Good Prescriptions Prescriptions: New amoxicillin [amoxicillin] 875 mg tablet 875 mg PO Q12H Qty: 20 0RF benzonatate [benzonatate] 100 mg capsule 100 mg PO TIDP PRN (Reason: Cough) Qty: 30 0RF methylprednisolone 4 mg Tablets,Dose Pack 4 mg PO DIRECTED Qty: 21 0RF No Action clotrimazole-betamethasone 1-0.05 % cream 1 applic topical BID Qty: 60 1RF epinephrine [EpiPen 2-Simone] 0.3 mg/0.3 mL auto-injector 0.3 mg IM Q5-15M PRN (Reason: anaphylaxis) Qty: 2 1RF Rx Instructions: do not exceed 3 doses per episode cetirizine 10 mg tablet See Rx Instructions .ROUTE .COMPLEX Qty: 90 3RF Dose Instruction: TAKE 1 TABLET BY MOUTH EVERY DAY FOR 90 DAYS Rx Instructions: TAKE 1 TABLET BY MOUTH EVERY DAY FOR 90 DAYS albuterol sulfate 90 mcg/actuation HFA aerosol inhaler 2 puff IH QIDP PRN (Reason: Shortness Of Breath) Qty: 6.7 0RF bupropion HCl 150 mg tablet extended release 24 hr 150 mg PO DAILY Qty: 90 3RF triamterene-hydrochlorothiazid 37.5-25 mg tablet See Rx Instructions .ROUTE .COMPLEX Qty: 90 1RF Dose Instruction: TAKE 1 TABLET BY MOUTH EVERY DAY Rx Instructions: TAKE 1 TABLET BY MOUTH EVERY DAY varenicline 1 mg tablet 1 mg PO BID Qty: 60 4RF Referrals Follow up/Referrals: Yisel Trevino MD [Primary Care Provider] - See instructions Activity Restrictions/Add. Instructions Additional Instructions/Restrictions: Drink plenty of fluids. Take tylenol or ibuprofen for pain or fever. Take the medications as directed. Follow up with your regular doctor. GO TO THE ER FOR ANY WORSENING SYMPTOMS Clinical Impressions Clinical Impression: Pharyngitis Instructions Patient Instructions: Strep Throat, DI for Strep Throat Discharge ED Provider: [place] Lamar [facility] [place] General Stated complaint: sore throat, bilateral ear pain Time Seen by Provider: 05/24/23 18:54 History of Present Illness Provider Complaint: He states that for the past 2 days he has had sore throat, nonproductive cough, chills, and malaise. Related Data Previous Rx's Medication Instructions Recorded cetirizine 10 mg tablet See Rx Instructions .Route 01/11/23 .COMPLEX #90 tabs clotrimazole-betamethasone 1 1 applic topical BID foot 01/15/23 %-0.05 % topical cream dermatitis #60 grams albuterol sulfate 90 mcg/actuation 2 puff inhalation QIDP PRN 01/31/23 aerosol inhaler Shortness Of Breath #6.7 grams epinephrine 0.3 mg/0.3 mL 0.3 mg (0.3 mL) IM Q5-15M PRN 04/08/23 injection, auto-injector (EpiPen anaphylaxis #2 ea 2-Simone) bupropion HCl 150 mg 24 hr tablet, 150 mg PO DAILY #90 tabs 04/17/23 extended release triamterene 37.5 See Rx Instructions .Route 05/03/23 mg-hydrochlorothiazide 25 mg tablet .COMPLEX #90 tabs varenicline 1 mg tablet 1 mg PO BID #60 tabs 05/06/23 amoxicillin 875 mg tablet 875 mg PO Q12H #20 tabs 05/24/23 benzonatate 100 mg capsule 100 mg PO TIDP PRN Cough #30 caps 05/24/23 methylprednisolone 4 mg tablets in 4 mg PO DIRECTED #21 tabs 05/24/23 a dose pack Allergies Allergy/AdvReac Type Severity Reaction Status Date / Time No Known Allergies Allergy Verified 05/24/23 19:19 [facility] Disclaimer: The information contained in this section may have been updated after the patient was seen, as this information can be updated by other users. Medical History (Updated 05/24/23 @ 19:34 by Jonathan Lamar APRN) Abnormal CXR BMI 40.0-44.9, adult Dyshidrotic foot dermatitis Encounter for commercial driving license (CDL) exam Encounter for smoking cessation counseling Fatigue Hematuria Medication side effect Tobacco use URI, acute Social History Smoking Status: Current every day smoker tobacco type: cigarettes packs per day: 2 second hand exposure: Yes alcohol intake: never substance use type
[2023-05-24 19:24] LABS: UTC Strep Screen (Rapid) Negative (Negative)
[2023-05-24 19:37] VITALS: BP 138/77; PULSE 73; RESP 18; TEMP 36.8; O2SAT 96
== END 2023-05-24 19:37 | disposition home or self-care (01) ==
PROVIDERS: Emergency Provider Nurse Practitioner Family; PCP Family Medicine
DX: J02.9 Acute pharyngitis, unspecified (principal); H92.03 Otalgia, bilateral; F17.210 Nicotine dependence, cigarettes, uncomplicated; Z68.41 Body mass index [BMI] 40.0-44.9, adult
CPT/HCPCS: 87880; 99212; 99214; G0463

== ENCOUNTER → 2023-07-03 09:21 | Outpatient (CLI) | payer BC, SELFPAY ==
[2023-07-03 19:08] LABS: Basophils # 0.1 K/mm3 (0-0.2); Basophils % 0.5 % (0.1-2.0); Eosinophils # 0.2 K/mm3 (0.0-0.4); Hematocrit 49.2 % (42.0-52.0); Hemoglobin 16.4 g/dL (14.1-18.0); Lymphocytes # 1.7 K/mm3 (0.7-4.5); Lymphocytes % 14.5 % (10-50); Mean Corpuscular HGB Conc 33.3 g/dL (31.8-35.4); Mean Corpuscular Hemoglobin 31.3 pg (27.0-31.2); Mean Corpuscular Volume 93.9 fl (80-94); Mean Platelet Volume 9.1 fl (7.4-10.4); Monocytes # 0.6 K/mm3 (0.1-1.0); Monocytes % 5.6 % (1.7-9.3); Neutrophils # 8.8 K/mm3 (1.8-7.8); Neutrophils % 77.4 % (37.0-80.0); Platelet Count 432 K/mm3 (142-424); Red Blood Count 5.24 M/mm3 (4.60-6.20); Red Cell Distribution Width 13.5 % (11.5-17.5); White Blood Count 11.4 K/mm3 (4.8-10.8)
== END ==
PROVIDERS: PCP Nurse Practitioner; Visit Provider Nurse Practitioner
DX: K52.9 Noninfective gastroenteritis and colitis, unspecified (principal)
CPT/HCPCS: 85025

== ENCOUNTER 2023-09-24 22:02 | Outpatient (CLI) | payer BC, SELFPAY ==
[2023-09-24 18:32] LABS: Creatinine,Urine Random 76 mg/dL (Not Estab.)
[2023-09-24 18:37] LABS: Microalbumin < 6.000 mg/L (0-16.7)
[2023-09-24 19:23] LABS: Basophils # 0.1 K/mm3 (0-0.2); Basophils % 0.9 % (0.1-2.0); Eosinophils # 0.3 K/mm3 (0.0-0.4); Hematocrit 47.3 % (42.0-52.0); Hemoglobin 15.6 g/dL (14.1-18.0); Lymphocytes % 35.4 % (10-50); Mean Corpuscular Volume 93.8 fl (80-94); Mean Platelet Volume 9.3 fl (7.4-10.4); Monocytes # 0.6 K/mm3 (0.1-1.0); Neutrophils # 4.5 K/mm3 (1.8-7.8); Neutrophils % 52.7 % (37.0-80.0); Platelet Count 407 K/mm3 (142-424); Red Blood Count 5.04 M/mm3 (4.60-6.20); White Blood Count 8.5 K/mm3 (4.8-10.8)
[2023-09-24 19:48] LABS: Hemoglobin A1C 5.4 % (4.0-6.0)
[2023-09-24 19:59] LABS: Alanine Aminotransferase 45 U/L (12-78); Albumin Level 4.2 g/dl (3.5-5.0); Albumin/Globulin Ratio 1.6 (1.1-1.8); Alkaline Phosphatase 81 U/L (38-126); Anion Gap 9.2 mEq/L (5-15); Aspartate Amino Transferase 42 U/L (17-59); Bilirubin,Total 0.4 mg/dl (0.2-1.3); Blood Urea Nitrogen 13 mg/dl (9-20); Calcium 9.2 mg/dl (8.4-10.2); Carbon Dioxide 26 mmol/L (22.0-30.0); Chloride 107 mmol/L (98-107); Chol/HDL Ratio 6.4 (1-3.5); Cholesterol 276 mg/dl (140-200); Estimated Glomerular Filt Rate 91 ml/min (>60); GFR (African American) 110 ML/MIN (>60); Globulin 2.7 g/dL (1.3-3.2); Glucose 104 mg/dl (74-100); HDL Cholesterol 43 mg/dl (40-60); Potassium 4.2 mmoL/L (3.5-5.1); Sodium 138 mmol/L (136-145); Total Protein,Serum 6.9 g/dl (6.3-8.2); Triglycerides 198 mg/dl (30-150); VLDL Cholesterol 40 mg/dL (0-40)
[2023-09-24 20:10] LABS: Direct LDL Cholesterol 172.73 mg/dL (100-129)
[2023-09-24 20:15] LABS: 25-OH Vitamin D, Total 20.3 ng/mL (30-100)
[2023-09-24 20:29] LABS: Prostate Specific Ag Screen 0.5 ng/ml (0.0-4.0)
[2023-09-24 20:48] LABS: Vitamin B12 415 pg/mL (239-931)
== END 2023-09-24 23:59 ==
LOC: LAB.DROPOF 22:02
PROVIDERS: PCP Nurse Practitioner; Visit Provider Nurse Practitioner
DX: E78.5 Hyperlipidemia, unspecified (principal); I10 Essential (primary) hypertension; E55.9 Vitamin D deficiency, unspecified; E66.9 Obesity, unspecified; Z68.41 Body mass index [BMI] 40.0-44.9, adult; Z12.5 Encounter for screening for malignant neoplasm of prostate; Z79.899 Other long term (current) drug therapy
CPT/HCPCS: 80053; 80061; 82043; 82306; 82570; 82607; 83036; 84443; 85025; G0103

== ENCOUNTER 2023-12-24 11:40 | Outpatient (CLI) | payer BC, SELFPAY ==
[2023-12-24 19:51] LABS: Alanine Aminotransferase 47 U/L (12-78); Albumin Level 4.3 g/dl (3.5-5.0); Albumin/Globulin Ratio 1.7 (1.1-1.8); Alkaline Phosphatase 84 U/L (38-126); Anion Gap 11.6 mEq/L (5-15); Aspartate Amino Transferase 46 U/L (17-59); Bilirubin,Total 0.5 mg/dl (0.2-1.3); Blood Urea Nitrogen 10 mg/dl (9-20); Calcium 9.7 mg/dl (8.4-10.2); Carbon Dioxide 25 mmol/L (22.0-30.0); Chloride 105 mmol/L (98-107); Chol/HDL Ratio 4.1 (1-3.5); Cholesterol 209 mg/dl (140-200); Estimated Glomerular Filt Rate 90 ml/min (>60); GFR (African American) 109 ML/MIN (>60); Globulin 2.5 g/dL (1.3-3.2); Glucose 102 mg/dl (74-100); HDL Cholesterol 51 mg/dl (40-60); Potassium 4.6 mmoL/L (3.5-5.1); Sodium 137 mmol/L (136-145); Total Protein,Serum 6.8 g/dl (6.3-8.2); Triglycerides 202 mg/dl (30-150); VLDL Cholesterol 40 mg/dL (0-40)
[2023-12-24 20:02] LABS: Direct LDL Cholesterol 126.01 mg/dL (100-129)
[2023-12-24 20:08] LABS: 25-OH Vitamin D, Total 39.5 ng/mL (30-100)
== END 2023-12-24 23:59 | disposition home or self-care (01) ==
LOC: LAB.DROPOF 12-25 11:40
PROVIDERS: PCP Nurse Practitioner; Visit Provider Nurse Practitioner
DX: I10 Essential (primary) hypertension (principal); E78.5 Hyperlipidemia, unspecified; E55.9 Vitamin D deficiency, unspecified; Z68.38 Body mass index [BMI] 38.0-38.9, adult; F17.210 Nicotine dependence, cigarettes, uncomplicated
CPT/HCPCS: 80053; 80061; 82306

== ENCOUNTER 2024-03-05 13:41 | Outpatient (CLI) | payer BC, SELFPAY ==
[2024-03-05 18:55] LABS: Basophils # 0.1 K/mm3 (0-0.2); Basophils % 1.1 % (0.1-2.0); Eosinophils # 0.2 K/mm3 (0.0-0.4); Hematocrit 37.9 % (42.0-52.0); Hemoglobin 15.5 g/dL (14.1-18.0); Lymphocytes # 2.5 K/mm3 (0.7-4.5); Lymphocytes % 31.7 % (10-50); Mean Corpuscular Hemoglobin 38.9 pg (27.0-31.2); Mean Corpuscular Volume 95.2 fl (80-94); Mean Platelet Volume 9.2 fl (7.4-10.4); Monocytes # 0.6 K/mm3 (0.1-1.0); Monocytes % 7.3 % (1.7-9.3); Neutrophils # 4.4 K/mm3 (1.8-7.8); Neutrophils % 56.9 % (37.0-80.0); Platelet Count 360 K/mm3 (142-424); Red Blood Count 3.99 M/mm3 (4.60-6.20); Red Cell Distribution Width 14.6 % (11.5-17.5); White Blood Count 7.8 K/mm3 (4.8-10.8)
[2024-03-05 18:59] LABS: Mean Corpuscular HGB Conc 40.8 g/dL (31.8-35.4)
[2024-03-05 19:13] LABS: Alanine Aminotransferase 55 U/L (12-78); Albumin Level 4.1 g/dl (3.5-5.0); Albumin/Globulin Ratio 1.5 (1.1-1.8); Alkaline Phosphatase 79 U/L (38-126); Anion Gap 10.2 mEq/L (5-15); Aspartate Amino Transferase 47 U/L (17-59); Bilirubin,Total 0.8 mg/dl (0.2-1.3); Blood Urea Nitrogen 11 mg/dl (9-20); Calcium 9.7 mg/dl (8.4-10.2); Carbon Dioxide 25 mmol/L (22.0-30.0); Chloride 108 mmol/L (98-107); Chol/HDL Ratio 6.2 (1-3.5); Cholesterol 253 mg/dl (140-200); Estimated Glomerular Filt Rate 80 ml/min (>60); GFR (African American) 97 ML/MIN (>60); Globulin 2.8 g/dL (1.3-3.2); Glucose 94 mg/dl (74-100); HDL Cholesterol 41 mg/dl (40-60); Potassium 4.2 mmoL/L (3.5-5.1); Sodium 139 mmol/L (136-145); Total Protein,Serum 6.9 g/dl (6.3-8.2); Triglycerides 198 mg/dl (30-150); VLDL Cholesterol 40 mg/dL (0-40)
[2024-03-05 19:26] LABS: Direct LDL Cholesterol 166.06 mg/dL (100-129)
[2024-03-05 19:34] LABS: 25-OH Vitamin D, Total 38.5 ng/mL (30-100)
[2024-03-05 19:47] LABS: Thyroid Stimulating Hormone 1.69 uIU/mL (0.465-4.68)
[2024-03-05 19:52] LABS: Hemoglobin A1C 5.3 % (4.0-6.0)
[2024-03-05 20:05] LABS: Vitamin B12 494 pg/mL (239-931)
[2024-03-05 20:07] LABS: Creatinine,Urine Random 72 mg/dL (Not Estab.)
[2024-03-05 20:11] LABS: Microalbumin < 6.000 mg/L (0-16.7)
== END 2024-03-05 23:59 | disposition home or self-care (01) ==
LOC: LAB.DROPOF 03-06 13:41
PROVIDERS: PCP Nurse Practitioner; Visit Provider Nurse Practitioner
DX: I10 Essential (primary) hypertension (principal); E78.5 Hyperlipidemia, unspecified; E55.9 Vitamin D deficiency, unspecified; E16.2 Hypoglycemia, unspecified; Z72.0 Tobacco use
CPT/HCPCS: 80050; 80053; 80061; 82043; 82306; 82570; 82607; 83036; 84443; 85025

== ENCOUNTER 2024-03-16 08:38 | Outpatient (CLI) | payer BC, SELFPAY ==
--- NOTE | 2024-03-16 08:39 | CA_ITS ---
APPROVED REPORT EXAM: Comprehensive 2D, Doppler, and color-flow Echocardiogram Lacer And Tier: Susan Santacruz RT(R) Ht: 6 ft 0 in Wt: 285lbs BSA: 2.48 BP: 142/92 mmHg Indications: CP, smoker, fatigue, HTN, SOB, hyperlipidemia, family history of HD 2D Dimensions Left Atrium 3.11 cm M: 3.0 - 4.0 LA Volume 53.30 mL LVOT 1.78 cm (M/F) 1.5-2.5 LA Volume Index 21.49 mL/m2 (M/F) 16-34 EF AP4 47.30 % GL Strain -11.9 % M-Mode Dimensions RVDd 2.65 cm (0.9-2.6) LVDd 5.78 cm (3.5-5.7) Ao Diam 3.43 cm (2.0-3.7) LVDs 4.33 cm (3.5-5.7) IVSd 0.80 cm (0.6-1.1) PWd 0.92 cm (0.6-1.1) EF (Teich) 48.90% FS 25.10% EDV (Teich) 165.20 mL TAPSE 2.78 (<1.7) ESV (Teich) 84.40 mL LV Diastology E Decel Time 156 (160-240 msec) E/A Ratio 1.8 MED E' 7.7 (>= 7 cm/sec) E'/MED E' Ratio 12.16 (<= 14) LAT E' 12.4 (>= 10 cm/sec) E/LAT E' Ratio 7.55 (<= 14) Mitral Valve MV E Max Tanner. 94.0 (40-130 cm/s) MV A Velocity 52.0 (40-130 cm/s) E/A Ratio 1.81 MV Decel. Time 156 (160-240 ms) Left Ventricle The left ventricle is normal size. The left ventricular systolic function is normal. The left ventricular ejection fraction is within the normal range. There is increased LV wall thickness. There is normal LV segmental wall motion. The left ventricular diastolic function is normal. LVEF is 55%. Right Ventricle The right ventricle is mildly dilated. The right ventricular systolic function is normal. Atria The left atrium size is normal. The right atrium size is normal. There is no Doppler evidence of interatrial shunt. Aortic Valve The aortic valve is mildly thickened. There is no aortic valvular stenosis. No aortic regurgitation is present. Mitral Valve The mitral valve is normal in structure. No evidence of mitral valve stenosis. Trace mitral regurgitation. Tricuspid Valve The tricuspid valve leaflets are thin and pliable. Trace tricuspid regurgitation. There is insufficient TR jet to estimate RVSP. Pulmonic Valve The pulmonary valve is normal in structure. Trace pulmonic regurgitation. Great Vessels The aortic root is normal in size. The ascending aorta is normal in size. IVC is normal in size and collapses >50% with inspiration. Pericardium There is no pericardial effusion. Other Information Study Quality: Fair Conclusion Normal biventricular systolic function. Mild RV dilation. No significant valvular stenosis or regurgitation. Electronically signed by : Glo Alberto MD 03/16/2024 11:50:13
--- NOTE | 2024-03-16 09:07 | XR_ITS ---
FINAL REPORT CLINICAL HISTORY: Shortness of breath, chest pressure COMPARISON: 02/01/2023 FINDINGS: PA and lateral views of the chest were obtained. The cardiac and mediastinal silhouettes are within normal limits. The lungs are clear. There is no pleural effusion or pneumothorax. No acute osseous abnormality is identified. IMPRESSION: No radiographic evidence of acute cardiac or pulmonary disease. Reviewed, Interpreted and Dictated by Shell Boyer MD Transcribed by Iraida Zarco Authenticated and [facility]
== END 2024-03-16 23:59 | disposition home or self-care (01) ==
LOC: RT 08:39
PROVIDERS: PCP Nurse Practitioner; Visit Provider Nurse Practitioner
DX: R06.02 Shortness of breath (principal); R07.89 Other chest pain
CPT/HCPCS: 71046; 93306

== ENCOUNTER 2024-03-20 16:23 | Emergency (ER) | payer BC, SELFPAY ==
--- NOTE | 2024-03-20 16:23 | ECG_ITS ---
APPROVED REPORT Exam: Resting ECG HR:74 bpm ECG Measurements Heart Rate 74 AXES MN 185 P 17 QRSd 115 QRS 23 QT 362 T 42 QTc 389 Conclusion SINUS RHYTHM INDETERMINATE AXIS MODERATE INTRAVENTRICULAR CONDUCTION DELAY [110+ ms QRS DURATION] BORDERLINE ECG Electronically signed by : SHAMEKA ALCAZAR, 03/20/2024 21:18:46
[2024-03-20 16:30] VITALS: BP 155/80; PULSE 69; RESP 20; O2SAT 96; BMI 38.0
--- NOTE | 2024-03-20 16:31 | XR_ITS ---
PROCEDURE INFORMATION: Exam: XR Chest Exam date and time: 03/20/2024 4:29 PM Age: 48 years old Clinical indication: Sternal or substernal pain; Additional info: Cp TECHNIQUE: Imaging protocol: Radiologic exam of the chest. Views: 2 views. COMPARISON: CR XR CHEST 2V 03/16/2024 9:12 AM FINDINGS: Lungs: No evidence of acute airspace infiltrate. No pulmonary edema. Pleural spaces: No significant pleural effusion. No pneumothorax. Heart/Mediastinum: Cardiomediastinal silouhette is within normal limits. Bones/joints: No evidence of acute osseous abnormality. IMPRESSION: No acute findings.
[2024-03-20 16:35] VITALS: BP 146/70; PULSE 72; RESP 14; TEMP 36.8; O2SAT 98; BMI 38.0
[2024-03-20 16:38] LABS: Basophils # 0.1 K/mm3 (0-0.2); Basophils % 0.9 % (0.1-2.0); Eosinophils # 0.4 K/mm3 (0.0-0.4); Eosinophils % 3.6 % (0.1-12.0); Hematocrit 44.6 % (42.0-52.0); Hemoglobin 14.9 g/dL (14.1-18.0); Lymphocytes # 3.1 K/mm3 (0.7-4.5); Lymphocytes % 27.8 % (10-50); Mean Corpuscular HGB Conc 33.5 g/dL (31.8-35.4); Mean Corpuscular Hemoglobin 31.7 pg (27.0-31.2); Mean Corpuscular Volume 94.8 fl (80-94); Mean Platelet Volume 7.5 fl (7.4-10.4); Monocytes # 0.7 K/mm3 (0.1-1.0); Monocytes % 6.5 % (1.7-9.3); Neutrophils # 6.8 K/mm3 (1.8-7.8); Neutrophils % 61.3 % (37.0-80.0); Platelet Count 414 K/mm3 (142-424); Red Cell Distribution Width 14.3 % (11.5-17.5)
--- NOTE | 2024-03-20 16:43 | PC.NURSE ---
PT returned to room from RAD
[2024-03-20 16:51] LABS: Alanine Aminotransferase 48 U/L (12-78); Albumin Level 4.4 g/dl (3.5-5.0); Albumin/Globulin Ratio 1.3 (1.1-1.8); Alkaline Phosphatase 78 U/L (38-126); Anion Gap 11.2 mEq/L (5-15); Aspartate Amino Transferase 46 U/L (17-59); Bilirubin,Total 0.7 mg/dl (0.2-1.3); Blood Urea Nitrogen 14 mg/dl (9-20); Calcium 9.6 mg/dl (8.4-10.2); Carbon Dioxide 27 mmol/L (22.0-30.0); Chloride 106 mmol/L (98-107); Creatinine Clearance Estimated 137 mL/min (50-200); Estimated Glomerular Filt Rate 65 ml/min (>60); GFR (African American) 79 ML/MIN (>60); Globulin 3.5 g/dL (1.3-3.2); Glucose 94 mg/dl (74-100); Potassium 4.2 mmoL/L (3.5-5.1); Sodium 140 mmol/L (136-145); Total Protein,Serum 7.9 g/dl (6.3-8.2)
[2024-03-20 16:57] LABS: Lipase 133 U/L (23-300)
[2024-03-20 17:00] VITALS: BP 143/81; PULSE 66; RESP 17; O2SAT 95
[2024-03-20] MEDS: BELLADONNA ALKALOIDS 60 ML ML PO (17:10)
[2024-03-20] MEDS: FAMOTIDINE 20MG TABLET 40 MG PO (17:10)
[2024-03-20 17:20] LABS: Troponin I < 0.01 ng/ml (0.00-0.034)
[2024-03-20 17:30] VITALS: BP 120/89; PULSE 67; RESP 22; O2SAT 96
[2024-03-20 18:12] VITALS: BP 137/86; PULSE 68; RESP 18; TEMP 36.8; O2SAT 98
--- NOTE | 2024-03-20 18:42 | ED_ITS ---
Discharge Plan Disposition Patient Disposition: Home, Self-Care Condition: Good Prescriptions Prescriptions: New pantoprazole 40 mg tablet,delayed release (DR/EC) 40 mg PO DAILY Qty: 30 1RF No Action epinephrine [EpiPen 2-Simone] 0.3 mg/0.3 mL auto-injector 0.3 mg IM Q5-15M PRN (Reason: anaphylaxis) Qty: 2 1RF Rx Instructions: do not exceed 3 doses per episode bupropion HCl 300 mg tablet extended release 24 hr 300 mg PO DAILY Qty: 30 2RF levofloxacin 500 mg tablet 500 mg PO Q24H Qty: 10 0RF prednisone 20 mg tablet 20 mg PO .COMPLEX Qty: 15 0RF Rx Instructions: 20 mg orally BID x 5 days then daily x 5 days cetirizine 10 mg tablet See Rx Instructions .ROUTE .COMPLEX Qty: 90 3RF Dose Instruction: TAKE 1 TABLET BY MOUTH EVERY DAY FOR 90 DAYS Rx Instructions: TAKE 1 TABLET BY MOUTH EVERY DAY FOR 90 DAYS albuterol sulfate 90 mcg/actuation HFA aerosol inhaler 2 puff IH QIDP PRN (Reason: Shortness Of Breath) Qty: 6.7 0RF cholecalciferol (vitamin D3) 125 mcg (5,000 unit) tablet 125 mcg PO DAILY Qty: 30 5RF coenzyme Q10 100 mg capsule 100 mg PO DAILY Qty: 30 2RF rosuvastatin 20 mg tablet 20 mg PO DAILY Qty: 90 1RF nystatin 100,000 unit/gram cream 1 applic topical BID Qty: 30 1RF losartan 100 mg tablet 100 mg PO DAILY Qty: 30 2RF Referrals Follow up/Referrals: Kamilah Carvalho APRN [Primary Care Provider] - See instructions Activity Restrictions/Add. Instructions Additional Instructions/Restrictions: You were evaluated in the emergency department today. 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 Return to the emergency department for new or worsening symptoms. Clinical Impressions Clinical Impression: Chest pain, Dyspepsia Stand Alone Forms Stand Alone Forms: Work/School Release Instructions Patient Instructions: DI for Atypical Chest Pain, DI for Dyspepsia Print Language Print Language: [place] Discharge ED Provider: Liss Gal[place] General Chief Complaint: Chest Pain Stated Complaint: Chest pain Time Seen by Provider: 03/20/24 16:28 Mode of Arrival: Ambulatory Source of Information: Patient Limitations: No Limitations Description of Symptoms (Recalled from ER Triage Doc. by RN): pt c/o sternal chest pain x3-4d. pt states the pain is pressure and 5/10. pt states he has been having diarrhea and belching the same period of time. pt reports he took gasx [employer] without relief. pt states he had an ECHO here on 03/16 but his f/u is not until 03/23. History of Present Illness HPI narrative: This patient is a 48-year-old male with a history of hypertension, hyperlipidemia, tobacco use, and obesity presenting with concern for chest pain. Patient states has been going on for approximately 3 to 4 days and is a tightness/pressure that is 5 out of 10. It feels better with belching. He took Gas-X prior to arrival without relief. He denies experiencing feeling this in the past. He notes that he has been evaluated by cardiology and had an echocardiogram done 03/16 but has not gotten the results. I reviewed past medical records and noted that his echocardiogram was reassuring with only mild right ventricular dilatation, but was otherwise reassuring. No other concerns noted at this time. Related Data Previous Rx's ?Medication ?Instructions ?Recorded cetirizine 10 mg tablet See Rx Instructions .Route 01/11/23 .COMPLEX #90 tabs albuterol sulfate 90 mcg/actuation 2 puff inhalation QIDP PRN 01/31/23 aerosol inhaler Shortness Of Breath #6.7 grams epinephrine 0.3 mg/0.3 mL 0.3 mg (0.3 mL) IM Q5-15M PRN 04/08/23 injection, auto-injector (EpiPen anaphylaxis #2 ea 2-Simone) cholecalciferol (vitamin D3) 125 125 mcg PO DAILY #30 tabs 09/26/23 mcg (5,000 unit) tablet coenzyme Q10 100 mg capsule 100 mg PO DAILY #30 caps 09/26/23 bupropion HCl 300 mg 24 hr tablet, 300 mg PO DAILY #30 tabs 10/22/23 extended release rosuvastatin 20 mg tablet 20 mg PO DAILY #90 tabs 12/25/23 nystatin 100,000 unit/gram topical 1 applic topical BID #30 grams 02/06/24 cream losartan 100 mg tablet 100 mg PO DAILY #30 tabs 02/24/24 levofloxacin 500 mg tablet 500 mg PO Q24H #10 tabs 03/05/24 prednisone 20 mg tablet 20 mg PO .COMPLEX #15 tabs 03/05/24 pantoprazole 40 mg tablet,delayed 40 mg PO DAILY #30 tabs 03/20/24 release Allergies Allergy/AdvReac Type Severity Reaction Status Date / Time No Known Allergies Allergy Verified 03/20/24 16:41 [facility] Disclaimer: The information contained in this section may have been updated after the patient was seen, as this information can be updated by other users. Medical History Abnormal echocardiogram Chest pressure SOB (shortness of breath) on exertion Multiple episodes of hypoglycemia Vitamin D deficiency Cigarette nicotine dependence Personal history of smoking Hematuria Encounter for commercial driving license (CDL) exam Encounter for smoking cessation counseling Medication side effect Abnormal CXR URI, acute Dyshidrotic foot dermatitis Tobacco use BMI 40.0-44.9, adult Fatigue Surgical History Hx of hernia repair History of back surgery Family History Other Coronary artery disease Diabetes Social History Smoking Status: Current every day smoker tobacco type: cigarettes packs per day: 2 second hand exposure: Yes alcohol intake: never substance use type: denies use current occupational status: employed Travel in the last 8 weeks: None household members: spouse and children housing: house current occupational exposures/hazards: No caffeine: Yes ROS Obtained: Yes All systems reviewed & no additional complaints except as documented Physical Exam General General appearance: alert and in no apparent distress Head Head exam: atraumatic and normocephalic Eye Eye exam: Present normal appearance, PERRL and EOMI ENT ENT exam: Present normal exam, normal oropharynx, mucous membranes moist and normal external ear exam Neck Neck exam: Present normal inspection, full ROM and trachea midline; Absent tenderness Chest Chest inspection: Present normal inspection and symmetric chest wall rise; Absent tenderness Respiratory Respiratory exam: Present normal lung sounds bilaterally; Absent respiratory distress, wheezes, stridor or accessory muscle use Cardiovascular Cardiovascular exam: Present regular rate and normal rhythm Abdominal Exam Abdominal exam: Present soft; Absent distention, tenderness or guarding Extremities Exam Extremities exam: Present normal inspection, full ROM and normal capillary refill; Absent tenderness or edema Back Exam Back exam: Present normal inspection and full ROM; Absent tenderness Neurological Exam Neurological exam: Present alert, oriented X3, CN II-XII intact and normal gait; Absent motor sensory deficit Psychiatric Psychiatric exam: Present normal affect and normal mood Skin Skin exam: Present warm and dry HEART Score HEART Score HEART Score assessment performed?: Yes History (anamnesis): Slightly suspicious ECG: Normal Age: 45-65 years Risk factors: 1-2 risk factors Troponin: </= normal limit HEART Score: 2 Critical Care Critical Care Time Critical Care Time: No Medical Decision Making Aramis Inquiry Pt receiving controlled substance: No Vital Signs Vital Signs: 03/20/24 16:30 03/20/24 16:35 03/20/24 17:00 Temperature 98.2 F Temperature Source Oral Pulse Rate 69 66 Pulse Rate [Left] 72 Respiratory Rate 20 14 17 Blood Pressure 155/80 H 143/81 H Blood Pressure [Right Arm] 146/70 H Blood Pressure Mean [Right Arm] 95 Blood Pressure Source [Right Arm] Automatic Cuff Blood Pressure Position Blood Pressure Position [Right Arm] Sitting 02 Sat by Pulse Oximetry 96 98 95 Oxygen Delivery Method Room Air Room Air Room Air 03/20/24 17:30 03/20/24 18:12 Temperature 98.2 F Temperature Source Oral Pulse Rate 67 68 Pulse Rate [Left] Respiratory Rate 22 18 Blood Pressure 120/89 137/86 Blood Pressure [Right Arm] Blood Pressure Mean [Right Arm] Blood Pressure Source [Right Arm] Blood Pressure Position Sitting Blood Pressure Position [Right Arm] 02 Sat by Pulse Oximetry 96 Oxygen Delivery Method Room Air Room Air Lab Data Labs: Lab Results 03/20/24 16:28: WBC 11.0 H, RBC 4.70, Hgb 14.9, Hct 44.6, MCV 94.8 H, MCH 31.7 H , MCHC 33.5, RDW 14.3, Plt Count 414, MPV 7.5, Neut % (Auto) 61.3, Lymph % (Auto) 27.8, Hubbard % (Auto) 6.5, Eos % (Auto) 3.6, Baso % (Auto) 0.9, Neut # (Auto) 6.8, Lymph # (Auto) 3.1, Hubbard # (Auto) 0.7, Eos # (Auto) 0.4, Baso # (Auto) 0.1, Sodium 140, Potassium 4.2, Chloride 106, Carbon Dioxide 27, Anion Gap 11.2, BUN 14, Creatinine 1.20, Estimated Creat Clear 137, Estimated GFR 65, Est GFR ( Amer) 79, Glucose 94, Calcium 9.6, Total Bilirubin 0.7, AST 46, ALT 48, Alkaline Phosphatase 78, Troponin I < 0.01, Total Protein 7.9, Albumin 4.4, Globulin 3.5 H, Albumin/Globulin Ratio 1.3, Lipase 133 03/20/24 16:28 03/20/24 16:28 Response Orders (Tests/Meds): ED MEDICATIONS Discontinued Medications Generic Name Dose Route Start Last Admin Trade Name Freq PRN Reason Stop Dose Admin Belladonna Alkaloids 60 ml 03/20/24 17:02 03/20/24 17:10 Belladonna Alkaloids 60 Ml Ml PO 03/20/24 17:03 60 ml ONCE ONE Administration Famotidine 40 mg 03/20/24 17:02 03/20/24 17:10 Famotidine 20mg Tablet PO 03/20/24 17:03 40 mg ONCE ONE Administration ORDERS Category Date Time Status CXR 2 view (NOT portable) [XR chest 2V] Stat Exams 03/20/24 16:31 Completed Complete Blood Count Auto Diff Stat Lab 03/20/24 16:28 Completed Comprehensive Metabolic Panel Stat Lab 03/20/24 16:28 Completed Lipase Stat Lab 03/20/24 16:28 Completed Troponin I Stat Lab 03/20/24 16:28 Completed ECG Data Tracing #1: Attestation: I reviewed this ECG and interpreted as documented below: ECG Narrative: Normal sinus rhythm with a ventricular rate of [address] changes concerning for ischemia. Moderate intraventricular conduction delay. ECG initial impression date: 03/20/24 ECG initial impression time: 16:30 MDM Narrative Medical Decision Narrative: In summary, this patient is a 48-year-old male presenting to the Emergency Department for evaluation of chest pain. Differential diagnoses considered include but are not limited to ACS, dysrhythmia, GERD, esophagitis, pleurisy, costochondritis. Ruling out the most morbid conditions drove assessment. It should be noted patient's history includes obesity, hypertension, hyperlipidemia, and tobacco dependence which may or may not be at goal therapy. This complicates all aspects of care by increasing patient's risk for morbidity. I reviewed patient's past medical records and noted recent echo. On exam, the patient is well-appearing sitting upright in bed in no acute distress with normal vital signs on cardiac telemetry. EKG obtained is reassuring. workup included CBC, CMP, lipase, troponin, chest x-ray. I feel that her symptoms are likely related to GERD/dyspepsia since it is better with belching and he describes symptoms of indigestion, so the patient was given GI cocktail and Pepcid for symptomatic improvement. I independently interpreted stray prior to the radiologist read and noted no acute focal consolidation or pneumothorax.. Please see their read for final interpretation. Labs were obtained that demonstrated no acutely concerning abnormalities with negative troponin. Patient is PERC negative for pulmonary embolus. On reassessment, patient had great improvement after administration of event as above. He is resting comfortably with reassuring vital signs and cardiac telemetry. Given this and the duration of symptoms, I do not feel that keeping the patient for further evaluation such as chest second troponin is indicated. I did prescribe him pantoprazole. I advised that he follow-up very closely with cardiology as well as his primary care provider and gave strict return precautions. The patient was discharged after all questions were answered.
== END 2024-03-20 18:14 | disposition home or self-care (01) ==
PROVIDERS: Emergency Provider Emergency Medicine; PCP Nurse Practitioner
DX: R07.89 Other chest pain (principal); R10.13 Epigastric pain; F17.210 Nicotine dependence, cigarettes, uncomplicated; I10 Essential (primary) hypertension; E78.5 Hyperlipidemia, unspecified
CPT/HCPCS: 71046; 80053; 83690; 84484; 85025; 93005; 99284

== ENCOUNTER 2024-04-23 09:41 | Outpatient (CLI) | payer BC, SELFPAY ==
[2024-04-23 11:57] LABS: Alanine Aminotransferase 51 U/L (12-78); Alkaline Phosphatase 70 U/L (38-126); Aspartate Amino Transferase 52 U/L (17-59); Bilirubin,Direct 0.2 mg/dl (0.0-0.4); Bilirubin,Indirect 0.4 mg/dL (0.0-0.9); Bilirubin,Total 0.6 mg/dl (0.2-1.3); Bilirubin,Unconjugated 0.4 mg/dL (0.0-1.1); Chol/HDL Ratio 4.1 (1-3.5); Cholesterol 200 mg/dl (140-200); HDL Cholesterol 49 mg/dl (40-60); Total Protein,Serum 6.9 g/dl (6.3-8.2); Triglycerides 169 mg/dl (30-150); VLDL Cholesterol 34 mg/dL (0-40)
[2024-04-23 12:08] LABS: Direct LDL Cholesterol 126.02 mg/dL (100-129)
== END 2024-04-23 23:59 | disposition home or self-care (01) ==
LOC: LAB 09:42
PROVIDERS: PCP Nurse Practitioner; Visit Provider Nurse Practitioner
DX: I51.7 Cardiomegaly (principal); R53.83 Other fatigue; Z68.41 Body mass index [BMI] 40.0-44.9, adult; I10 Essential (primary) hypertension; E78.5 Hyperlipidemia, unspecified
CPT/HCPCS: 36415; 80061; 80076

== ENCOUNTER → 2024-04-28 14:40 | Outpatient (CLI) | payer BC, SELFPAY | LOC: SL 14:40 | PROVIDERS: PCP Nurse Practitioner; Visit Provider Nurse Practitioner | DX: I51.7 Cardiomegaly (principal); R53.83 Other fatigue; Z68.41 Body mass index [BMI] 40.0-44.9, adult; I10 Essential (primary) hypertension; E78.5 Hyperlipidemia, unspecified | CPT/HCPCS: G0399 ==

== ENCOUNTER 2024-06-01 15:55 | Outpatient (CLI) | payer BC, SELFPAY ==
--- NOTE | 2024-06-01 15:59 | XR_ITS ---
FINAL REPORT TECHNIQUE: Chest PA & Lateral CLINICAL HISTORY: Nonspecific cough, bronchitis COMPARISON: 03/20/2024 FINDINGS: 2 views of the chest were performed. The heart size is normal. The mediastinum is within normal limits. The lungs are underinflated. There is no acute cardiopulmonary process. There are no pleural effusions. There is no pneumothorax. The bony thorax appears intact. IMPRESSION: No acute cardiopulmonary process. Reviewed, Interpreted and Dictated by Rafal Knight MD Transcribed by Kelly Yen Authenticated and [facility]
[2024-06-01 16:33] LABS: Albumin Level 4.5 g/dl (3.5-5.0); Chloride 106 mmol/L (98-107)
[2024-06-01 16:34] LABS: Potassium 3.9 mmoL/L (3.5-5.1); Sodium 139 mmol/L (136-145)
[2024-06-01 16:35] LABS: Basophils # 0.1 K/mm3 (0-0.2); Basophils % 0.4 % (0.1-2.0); Eosinophils % 0.3 % (0.1-12.0); Hematocrit 44.4 % (42.0-52.0); Hemoglobin 15.1 g/dL (14.1-18.0); Lymphocytes % 20.5 % (10-50); Mean Corpuscular Hemoglobin 30.7 pg (27.0-31.2); Mean Corpuscular Volume 90.2 fl (80-94); Mean Platelet Volume 7.2 fl (7.4-10.4); Monocytes % 6.5 % (1.7-9.3); Neutrophils # 10.6 K/mm3 (1.8-7.8); Neutrophils % 72.4 % (37.0-80.0); Platelet Count 463 K/mm3 (142-424); Red Blood Count 4.91 M/mm3 (4.60-6.20); Red Cell Distribution Width 13.8 % (11.5-17.5); White Blood Count 14.6 K/mm3 (4.8-10.8)
[2024-06-01 16:36] LABS: Blood Urea Nitrogen 11 mg/dl (9-20); Estimated Glomerular Filt Rate 80 ml/min (>60); GFR (African American) 97 ML/MIN (>60)
[2024-06-01 16:37] LABS: Alanine Aminotransferase 48 U/L (12-78); Albumin/Globulin Ratio 1.3 (1.1-1.8); Alkaline Phosphatase 77 U/L (38-126); Anion Gap 10.9 mEq/L (5-15); Aspartate Amino Transferase 39 U/L (17-59); Bilirubin,Total 0.5 mg/dl (0.2-1.3); Calcium 10.1 mg/dl (8.4-10.2); Carbon Dioxide 26 mmol/L (22.0-30.0); Globulin 3.6 g/dL (1.3-3.2); Glucose 75 mg/dl (74-100); Total Protein,Serum 8.1 g/dl (6.3-8.2)
[2024-06-01 16:46] LABS: NT Pro Brain Natriuretic Pep. 331 pg/mL (0-125)
== END 2024-06-01 23:59 | disposition home or self-care (01) ==
LOC: LAB 15:56
PROVIDERS: PCP Nurse Practitioner; Visit Provider Nurse Practitioner
DX: J40 Bronchitis, not specified as acute or chronic (principal); R05.9 Cough, unspecified
CPT/HCPCS: 36415; 71046; 80053; 83880; 85025

== ENCOUNTER 2024-07-10 15:23 | Outpatient (CLI) | payer BC, SELFPAY ==
--- NOTE | 2024-07-10 15:26 | XR_ITS ---
FINAL REPORT CLINICAL HISTORY: cough, SOB COMPARISON: 03/20/2024 FINDINGS: PA and lateral views of the chest are obtained. The cardiac and mediastinal silhouettes are within normal limits. There is right infrahilar opacity which is new from prior exam. Pneumonia not excluded. There is no pleural effusion or pneumothorax. IMPRESSION: Possible right infrahilar pneumonia. Reviewed, Interpreted and Dictated by Shell Boyer MD Transcribed by Estela Mantilla Authenticated and [facility]
== END 2024-07-10 23:59 | disposition home or self-care (01) ==
LOC: RAD 15:24
PROVIDERS: PCP Nurse Practitioner; Visit Provider Nurse Practitioner
DX: R05.9 Cough, unspecified (principal); R06.02 Shortness of breath
CPT/HCPCS: 71046

== ENCOUNTER 2024-07-13 10:29 | Outpatient (CLI) | payer BC, SELFPAY ==
[2024-07-13 15:36] LABS: Microscopic, Urine URINE MICROSCOPIC (MICROSCOPIC)
[2024-07-13 16:05] LABS: Appearance,Urine CLEAR (Clear); Bilirubin,Urine Negative (Negative); Blood, Urine 1+ (Negative); Color,Urine YELLOW (Yellow); Glucose,Urine (UA) Negative (Negative); Ketones,Urine Negative (Negative); Leukocyte Esterase,Urine Negative (Negative); Nitrate,Urine Negative (Negative); Protein,Urine Negative (Negative); Specific Gravity, Urine 1.015 (1.005-1.030); Urobilinogen,Urine 0.2 EU/dl (0.2)
[2024-07-13 17:52] LABS: WBC,Urine Occasional #/hpf (0-3)
[2024-07-14 13:13] LABS: Prostate Specific Ag 0.6 ng/mL (0.0-4.0)
== END 2024-07-13 23:59 | disposition home or self-care (01) ==
LOC: LAB 10:30
PROVIDERS: PCP Nurse Practitioner; Visit Provider Urology
DX: R31.9 Hematuria, unspecified (principal)
CPT/HCPCS: 36415; 81001; 84153; 84154

== ENCOUNTER 2024-07-31 07:33 | Outpatient (CLI) | payer BC, SELFPAY ==
--- NOTE | 2024-07-31 07:33 | CT_ITS ---
FINAL REPORT TECHNIQUE: Axial CT images of the abdomen and pelvis were obtained before and after the administration of IV contrast. This study was performed with techniques to keep radiation doses as low as reasonably achievable (ALARA). Individualized dose reduction techniques using automated exposure control or adjustment of mA and/or kV according to the patient's size were employed. CLINICAL HISTORY: Hemturia COMPARISON: None FINDINGS: Abdomen: The lung bases are clear. The heart is normal in size. Mild fatty infiltration of the liver is present without evidence of focal mass or biliary ductal dilatation. . The spleen is unremarkable. No adrenal masses present. The pancreas has an unremarkable appearance. The kidneys enhance normally, without evidence of hydronephrosis. The aorta is normal in caliber. Moderate vascular calcifications are present. There is no free fluid or adenopathy. No mass or abnormal fluid collection is seen. Precontrast images demonstrate no evidence of nephrolithiasis. Pelvis: The appendix is normal in appearance. The urinary bladder is unremarkable. No inflammatory process is seen. There is no evidence of mass or adenopathy. There is no evidence of bowel obstruction. There is a lobular 34 mm soft tissue mass in the subcutaneous soft tissues of the left gluteal area, superficial, which may represent a sebaceous cyst. IMPRESSION: No hydronephrosis or renal stones are identified, and there are no bladder or renal masses present. Mild fatty infiltration of the liver. Superficial 34 mm mass in the left gluteal subcutaneous soft tissues, may represent a sebaceous cyst. Reviewed, Interpreted and Dictated by Papito Mendoza III, MD Transcribed by Deloris Culp Authenticated and [facility]
--- NOTE | 2024-07-31 07:35 | CT_ITS ---
FINAL REPORT CLINICAL HISTORY: cough, SOBOE, smoker FINDINGS: Axial CT images of the chest were obtained with contrast. Coronal reformatted images were also obtained. This study was performed with techniques to keep radiation doses as low as reasonably achievable, (ALARA). Individualized dose reduction techniques using automated exposure control or adjustment of mA and/or KV according to the patient's size were employed. There are small mediastinal nodes which are stable. No axillary mass or adenopathy is identified. On lung window images, no pulmonary mass or dominant pulmonary nodule is identified. No localized pulmonary inflammatory process is identified. Limited images of the upper abdomen reveal fatty infiltration of the liver. There is a calcified granuloma in the left lower lobe. IMPRESSION: Fatty liver. Reviewed, Interpreted and Dictated by Papito Mendoza III, MD Transcribed by Kimi Pearl Authenticated and [facility]
[2024-07-31 08:03] LABS: Blood Urea Nitrogen 12 mg/dl (9-20); Estimated Glomerular Filt Rate 80 ml/min (>60); GFR (African American) 97 ML/MIN (>60)
[2024-07-31] MEDS: IOPAMIDOL-370 (76%);100ML BOTTLE 75 ML IV (08:28)
[2024-07-31] MEDS: SODIUM CHLORIDE 0.9% 10ML SYR (RAD ONLY) 10 ML IV (08:28)
== END 2024-07-31 23:59 | disposition home or self-care (01) ==
LOC: RAD 07:33
PROVIDERS: PCP Nurse Practitioner; Visit Provider Neurological Surgery
DX: R31.9 Hematuria, unspecified (principal); R05.9 Cough, unspecified; R06.02 Shortness of breath
CPT/HCPCS: 36415; 71260; 74178; 82565; 84520; Q9967

== ENCOUNTER 2024-08-10 15:26 | Outpatient (CLI) | payer BC, SELFPAY ==
[2024-08-10 15:12] LABS: Microscopic, Urine URINE MICROSCOPIC (MICROSCOPIC)
[2024-08-10 15:20] LABS: Appearance,Urine CLEAR (Clear); Bilirubin,Urine Negative (Negative); Blood, Urine 2+ (Negative); Color,Urine YELLOW (Yellow); Glucose,Urine (UA) Negative (Negative); Ketones,Urine Negative (Negative); Leukocyte Esterase,Urine Negative (Negative); Nitrate,Urine Negative (Negative); PH,Urine 6.5 (5.0-8.5); Protein,Urine Negative (Negative); Specific Gravity, Urine 1.015 (1.005-1.030); Urobilinogen,Urine 0.2 EU/dl (0.2)
[2024-08-10 16:21] LABS: Bacteria,Urine 1+ /lpf; RBC,Urine 50-100 #/hpf (0-3); Squamous Epithelial Cell,Urine Occasional #/hpf (0-5); WBC,Urine Occasional #/hpf (0-3)
== END 2024-08-10 23:59 | disposition home or self-care (01) ==
LOC: LAB.DROPOF 15:26
PROVIDERS: PCP Urology; Visit Provider Urology
DX: R31.9 Hematuria, unspecified (principal); L40.9 Psoriasis, unspecified
CPT/HCPCS: 81001; 87086

== ENCOUNTER 2024-09-04 08:53 | Day surgery (SDC) | payer BC, SELFPAY ==
[2024-09-02 12:13] VITALS: BMI 38.0
--- NOTE | 2024-09-04 09:37 | EXP.ANES.CKL ---
[facility] Disclaimer: The information contained in this section may have been updated after the patient was seen, as this information can be updated by other users. 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 smoking cessation counseling Medication side effect Abnormal CXR URI, acute Dyshidrotic foot dermatitis Tobacco use BMI 40.0-44.9, adult Fatigue Surgical History Hx of hernia repair History of back surgery Family History Other Coronary artery disease Diabetes Social History Smoking Status: Current every day smoker tobacco type: cigarettes packs per day: 2 second hand exposure: Yes alcohol intake: never substance use type: denies use current occupational status: employed Travel in the last 8 weeks: None household members: spouse and children housing: house current occupational exposures/hazards: No caffeine: Yes Have you lived/traveled outside [place] in past 30 days?: No Contact w/someone who lives/traveled outside [place] past 30 days?: No Exposure to someone with infectious disease in past 14 days?: No Do you have a fever (greater than 100.4 F or 38 C)?: No Have you tested positive for COVID-19: No Exposed to someone with COVID-19 in past 14 days?: No Do you have a sore throat?: No Do you have a cough?: No Do you have any weakness?: No Do you have any diarrhea?: No Are you experiencing any unusual bleeding?: No Do you have any muscle aches/pain?: No Do you have any abdominal pain?: No Are you experiencing loss of taste or smell?: No [facility] Anesthesia Checklist Patient Identification Patient Identification: Arm Band and Verbal (Name & ) Structural Data Admitted From: Home Planned Operative Procedure/s: Cystoscopy Consent for Planned Operative Procedure(s) Verified: Yes Verified Documents: Surgical Consent and History and Physical NPO Status Verified Time NPO: 00:00 Additional verifications Anesthesia Reactions: No Airway Assessment Mallampati Score:: Class II C-Spine Mobility Assessed: Yes TMJ Mobility Assessed: Yes Dentition: Poor Dentition Neurological Assessment Level of Consciousness: Awake Hx Seizures: No Numbness or tingling in extremities: No Anesthesia Plan Anesthesia Risk discussed: Yes Anesthesia Plan: Verified ASA Class: II Anesthesia Type: MAC
[2024-09-04 09:49] VITALS: BP 130/76; PULSE 64; RESP 17; TEMP 36.4; O2SAT 96
[2024-09-04] MEDS: LIDOCAINE 2% UROJET 10ML 10 ML (10:15)
[2024-09-04] MEDS: 0.9 % SODIUM CHLORIDE 1000ML 1,000 ML 999 ML IV (10:20)
--- NOTE | 2024-09-04 10:22 | HMH.PROCNOTE ---
[facility] Procedure Note Date: 09/04/24 Time: 10:22 Procedure Note:: Chart review: Patient is here for cystoscopy due to microscopic hematuria. His CT scan on 08/11 with and without infusion urologically was negative. His urine culture and sensitivity was also negative. The patient has been found to have microscopic hematuria. Preop diagnosis: Hematuria Postop diagnosis: Hematuria Operative note: The patient was brought to the operating room. LMAC anesthesia was administered. Local anesthesia was also administered in the urethra with 2% Xylocaine jelly. The patient underwent flexible cystoscopy after he was prepped and draped using a sterile technique. The anterior urethra was unremarkable. From the level of the verumontanum and the patient actually has no prostate obstruction. The bladder itself is [place] pink in color throughout without evidence of bladder stone tumor hemorrhage or infection. The ureteral orifice ease are normal bilaterally. There is clear E flux of urine. I see no anatomical reason for the hematuria.
[2024-09-04 10:25] VITALS: BP 133/73; PULSE 71; RESP 16; TEMP 36.7; O2SAT 98
[2024-09-04 10:35] VITALS: BP 117/55; PULSE 67; RESP 16; O2SAT 98
[2024-09-04 10:45] VITALS: BP 118/69; PULSE 71; RESP 20; O2SAT 99
[2024-09-04 10:55] VITALS: BP 122/64; PULSE 74; RESP 16; O2SAT 98
== END 2024-09-04 10:55 | disposition home or self-care (01) ==
PROVIDERS: PCP Nurse Practitioner; Visit Provider Urology
PROC: 0TJB8ZZ Inspection of Bladder, Via Natural or Artificial Opening Endoscopic (ICD-10-PCS; CPT 52000; principal; 2024-09-04 10:15)
DX: R31.29 Other microscopic hematuria (principal)
CPT/HCPCS: 52000; J2250; J7030

== ENCOUNTER 2024-10-01 20:19 | Emergency (ER) | payer BC, SELFPAY ==
[2024-10-01 20:23] VITALS: BP 169/92; PULSE 82; RESP 18; TEMP 36.8; O2SAT 98; BMI 40.6
--- NOTE | 2024-10-01 21:39 | PC.NURSE ---
Patient rounding complete; in room, no needs
--- NOTE | 2024-10-01 22:03 | PC.NURSE ---
Rounding complete; patient being discharged.
[2024-10-01 22:39] VITALS: PULSE 65; O2SAT 97
[2024-10-01 22:45] VITALS: PULSE 64; O2SAT 97
[2024-10-01 23:01] VITALS: BP 137/80; PULSE 64; O2SAT 98
--- NOTE | 2024-10-01 23:13 | PC.NURSE ---
Rounding done; patient resting
--- NOTE | 2024-10-01 23:36 | PC.NURSE ---
rounding complete, no needs at this time
[2024-10-01 23:53] VITALS: BP 132/74; PULSE 72; RESP 16; TEMP 36.6; O2SAT 98
--- NOTE | 2024-10-02 05:07 | ED_ITS ---
Discharge Plan Disposition Patient Disposition: Home, Self-Care Condition: Good Prescriptions Prescriptions: New prednisone 10 mg tablet 10 mg PO DIRECTED Qty: 60 0RF Rx Instructions: Take 5 tablets (50 mg) by mouth for 4 days, then take 4 tablets (40 mg) by mouth for 4 days, then take 3 tablets (30 mg) by mouth for 4 days, then take 2 tablets (20 mg) by mouth for 4 days, then take 1 tablet (10 mg) by mouth for 4 days No Action epinephrine [EpiPen 2-Simone] 0.3 mg/0.3 mL auto-injector 0.3 mg IM Q5-15M PRN (Reason: anaphylaxis) Qty: 2 1RF Rx Instructions: do not exceed 3 doses per episode albuterol sulfate 90 mcg/actuation HFA aerosol inhaler 2 puff inhalation Q4-6H PRN (Reason: shortness of breath or wheezing) Qty: 8.5 0RF famotidine [Pepcid] 20 mg tablet 20 mg PO DAILY Qty: 30 2RF cetirizine [Zyrtec] 10 mg tablet 20 mg PO DAILY Qty: 60 0RF rosuvastatin 40 mg tablet 40 mg PO DAILY Qty: 90 3RF pantoprazole 40 mg tablet,delayed release (DR/EC) 40 mg PO DAILY Qty: 90 1RF ([place] [facility] [place] .MEDSUPPLY Qty: 1 0RF Rx Instructions: As directed (DME) nebulizer accessories Kit See Rx Instructions .MEDSUPPLY Qty: 1 0RF Rx Instructions: As directed oxybutynin chloride 10 mg tablet extended release 24hr 10 mg PO DAILY Qty: 90 3RF tamsulosin [Flomax] 0.4 mg capsule 0.4 mg PO DAILY Qty: 30 3RF cetirizine 10 mg tablet See Rx Instructions .ROUTE .COMPLEX Qty: 90 3RF Dose Instruction: TAKE 1 TABLET BY MOUTH EVERY DAY FOR 90 DAYS Rx Instructions: TAKE 1 TABLET BY MOUTH EVERY DAY FOR 90 DAYS ipratropium-albuterol 0.5 mg-3 mg(2.5 mg base)/3 mL solution for nebulization See Rx Instructions .ROUTE .COMPLEX Qty: 360 2RF Dose Instruction: INHALE CONTENTS OF 1 VIAL IN NEBULIZER EVERY 4-6 HOURS NEEDED FOR SHORTNESS OF BREATH OR WHEEZING Rx Instructions: INHALE CONTENTS OF 1 VIAL IN NEBULIZER EVERY 4-6 HOURS NEEDED FOR SHORTNESS OF BREATH OR WHEEZING losartan 100 mg tablet 100 mg PO DAILY Qty: 30 2RF nystatin 100,000 unit/gram cream 1 applic topical BID Qty: 30 1RF bupropion HCl 300 mg tablet extended release 24 hr See Rx Instructions .ROUTE .COMPLEX Qty: 90 0RF Dose Instruction: TAKE 1 TABLET BY MOUTH EVERY DAY Rx Instructions: TAKE 1 TABLET BY MOUTH EVERY DAY cholecalciferol (vitamin D3) 125 mcg (5,000 unit) tablet 125 mcg PO DAILY Qty: 30 5RF prednisone 20 mg tablet 20 mg PO BID Qty: 10 0RF clobetasol 0.05 % cream 1 applic topical BID 14 Days Qty: 60 0RF Referrals Follow up/Referrals: Barbara Mejia MD [Referring] - See instructions (Rash on extremities believed to be eczema with difficulty controlling) Kamilah Carvalho APRN [Primary Care Provider] - See instructions Activity Restrictions/Add. Instructions Additional Instructions/Restrictions: You were evaluated in the ER and are appropriate for discharge at this time. Take the prescribed prednisone steroid taper as directed. Taper off of your clobetasol by using it once daily for the next 10 days, then every other day for 10 days. Then stop this medication. 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 Use this to keep your skin moist. Consider changing your allergy medication to Xyzal or Jazmin. Call Dr. Mejia's dermatology office and make an appointment as soon as possible. Call your primary care doctor for immediate reevaluation and asked them for a referral to rheumatology. Return to the ER with new, worsening, or otherwise concerning symptoms. Clinical Impressions Clinical Impression: Pruritic rash Print Language Print Language: Trinidadian Discharge ED Provider: Michael Hansen Adult [facility] General Chief complaint: Skin/Abscess/Foreign Body Stated complaint: rash Time Seen by Provider: 10/01/24 23:10 Mode of Arrival: Ambulatory Source of Information: Patient Limitations: No Limitations Description of Symptoms (Recalled from ER Triage Doc. by RN): Pt presents for evaluation of rash to bilateral arms and right side of abdomen. Pt states the rash is itchy. Pt states this rash developed last night, but had a similar episode of a rash that was head to toe about 3 weeks ago. He was seen by a PCP and given a steroid and it went away. Pt denies any new foods, medications, hygiene products. History of Present Illness HPI narrative: 48-year-old male with history of hypertension, hyperlipidemia presents to the ER with complaints of rash. Patient reports 3 to 4 weeks ago he developed rash on his legs, arms, and anywhere that his clothes touched. He and his report that they changed detergents and he had a skin reaction to it. He reports since that time he has not been able to get the rash under good control. He has been seen by PCP and prescribed both oral and topical steroids. He has been on clobetasol 0.5% ointment twice daily for multiple weeks. He states this somewhat helps but has never taken the rash away. He states each time he goes on oral steroids, he takes them for 5 days and the rash seems to go away but as soon as he stops it returns. Most recent course of steroids was finished 3 days ago. Patient and report that everything that had been washed with the new detergent has been washed again with the detergent to which she is not sensitive. He states he does have allergies and has had sensitive skin his whole life. He currently takes daily Zyrtec. 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 He denies new foods, medications, or soaps or lotions. He states he no longer has the rash on his legs, he has a very small amount on the right side of his abdomen, but is mostly concentrated to his forearms at this time. He states it is mildly itchy and sometimes soni. He denies blistering or sloughing. No mucosal involvement. No recent tick bites. No other associated symptoms Related Data Previous Rx's ?Medication ?Instructions ?Recorded epinephrine 0.3 mg/0.3 mL 0.3 mg (0.3 mL) IM Q5-15M PRN 04/08/23 injection, auto-injector (EpiPen anaphylaxis #2 ea 2-Siomne) pantoprazole 40 mg tablet,delayed 40 mg PO DAILY #90 tabs 05/19/24 release albuterol sulfate 90 mcg/actuation 2 puff inhalation Q4-6H PRN 05/28/24 aerosol inhaler shortness of breath or wheezing #8.5 grams nebulizer accessories #1 ea 06/01/24 nebulizers #1 ea 06/01/24 ipratropium 0.5 mg-albuterol 3 mg See Rx Instructions .Route 06/29/24 (2.5 mg base)/3 mL nebulization .COMPLEX #360 mL soln rosuvastatin 40 mg tablet 40 mg PO DAILY #90 tabs 07/23/24 cetirizine 10 mg tablet See Rx Instructions .Route 08/06/24 .COMPLEX #90 tabs oxybutynin chloride 10 mg 10 mg PO DAILY #90 tabs 08/10/24 tablet,extended release 24 hr tamsulosin 0.4 mg capsule (Flomax) 0.4 mg PO DAILY #30 caps 08/10/24 losartan 100 mg tablet 100 mg PO DAILY #30 tabs 08/17/24 nystatin 100,000 unit/gram topical 1 applic topical BID #30 grams 09/02/24 cream cetirizine 10 mg tablet (Zyrtec) 20 mg (2 x 10 mg) PO DAILY #60 tabs 09/10/24 famotidine 20 mg tablet (Pepcid) 20 mg PO DAILY #30 tabs 09/10/24 bupropion HCl 300 mg 24 hr tablet, See Rx Instructions .Route 09/14/24 extended release .COMPLEX #90 tabs cholecalciferol (vitamin D3) 125 125 mcg PO DAILY #30 tabs 09/25/24 mcg (5,000 unit) tablet prednisone 20 mg tablet 20 mg PO BID #10 tabs 09/25/24 clobetasol 0.05 % topical cream 1 applic topical BID 2 weeks #60 09/29/24 grams prednisone 10 mg tablet 10 mg PO DIRECTED #60 tabs 10/01/24 Allergies Allergy/AdvReac Type Severity Reaction Status Date / Time No Known Allergies Allergy Verified 09/25/24 14:25 [facility] Disclaimer: The information contained in this section may have been updated after the patient was seen, as this information can be updated by other users. 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 smoking cessation counseling Medication side effect Abnormal CXR URI, acute Dyshidrotic foot dermatitis Tobacco use BMI 40.0-44.9, adult Fatigue sleep study pending Surgical History Hx of hernia repair History of back surgery Family History Other Coronary artery disease Diabetes Social History (Updated 09/25/24 @ 14:26 by Lyric Rueda MA) Smoking Status: Current every day smoker tobacco type: cigarettes packs per day: 2 second hand exposure: Yes alcohol intake: never substance use type: denies use current occupational status: employed Travel in the last 8 weeks: None household members: spouse and children housing: house current occupational exposures/hazards: No caffeine: Yes Have you lived/traveled outside [place] in past 30 days?: No Contact w/someone who lives/traveled outside [place] past 30 days?: No Exposure to someone with infectious disease in past 14 days?: No Do you have a fever (greater than 100.4 F or 38 C)?: No Have you tested positive for COVID-19: No Exposed to someone with COVID-19 in past 14 days?: No Do you have a sore throat?: No Do you have a cough?: No Do you have any weakness?: No Do you have any diarrhea?: No Are you experiencing any unusual bleeding?: No Do you have any muscle aches/pain?: No Do you have any abdominal pain?: No Are you experiencing loss of taste or smell?: No Other Medical History Have you received the Flu Vaccine for this season: No Have you received the Pneumonia Vaccine: No ROS Obtained: Yes Systems reviewed as appropriate & no additional complaints except as documented Per HPI Physical Exam General General appearance: alert, in no apparent distress and obese Head Head exam: atraumatic and normocephalic Eye Eye exam: Present PERRL and EOMI ENT ENT exam: Present mucous membranes moist Neck Neck exam: Present normal inspection and full ROM Chest Chest inspection: Present symmetric chest wall rise Respiratory Respiratory exam: Absent respiratory distress or stridor Cardiovascular Cardiovascular exam: Present regular rate and normal rhythm Abdominal Exam Abdominal exam: Present soft; Absent distention or tenderness Comment: Mild maculopapular erythematous rash on the anterior right abdomen that blanches, no vesicles, no sloughing, no petechiae Extremities Exam Extremities exam: Present full ROM; Absent edema or joint swelling Neurological Exam Neurological exam: Present alert and oriented X3; Absent motor sensory deficit Psychiatric Psychiatric exam: Present normal affect and normal mood Skin Skin exam: Present warm, dry and rash (Erythematous maculopapular rash on the abdomen, similar appearing rash with small papules, plaques on the arms. They are dry appearing, erythematous, blanching, no vesicles or sloughing, no andres chiae, nontender, patient reports they are pruritic. No evidence of this rash overlying the joints) Medical Decision Making Medical Records Medical records reviewed: Yes I reviewed the patient's medical records. Screening: Per USPSTF and CDC recommendations, given the prevalence of disease in our region, it is our hospital?s policy to screen for HIV and viral Hepatitis for all patients aged 18 and over and those with ongoing risk factors. MR Comment: Patient seen in family practice office with Guerrero Barahona. Prescribed prednisone for contact 09/25/2024. [place] Inquiry Pt receiving controlled substance: No Vital Signs: 10/01/24 20:23 10/01/24 22:39 10/01/24 22:45 Temperature 98.2 F Temperature Source Oral Pulse Rate 65 64 Pulse Rate [Right] 82 Respiratory Rate 18 Blood Pressure Blood Pressure [Right Arm] 169/92 H Blood Pressure Mean [Right Arm] 117 Blood Pressure Source Blood Pressure Source [Right Arm] Automatic Cuff Blood Pressure Position Blood Pressure Position [Right Arm] Sitting 02 Sat by Pulse Oximetry 98 97 97 Oxygen Delivery Method Room Air 10/01/24 23:01 10/01/24 23:53 Temperature 97.9 F Temperature Source Oral Pulse Rate 64 72 Pulse Rate [Right] Respiratory Rate 16 Blood Pressure 137/80 132/74 Blood Pressure [Right Arm] Blood Pressure Mean [Right Arm] Blood Pressure Source Automatic Cuff Blood Pressure Source [Right Arm] Blood Pressure Position Supine Blood Pressure Position [Right Arm] 02 Sat by Pulse Oximetry 98 Oxygen Delivery Method Room Air Medical Decision Narrative: In summary, this 48-year-old male with comorbidities described in the HPI presents to the emergency department today with rash. On initial evaluation patient is hemodynamically stable, afebrile, well-appearing, nontoxic, no systemic symptoms, exam is overall reassuring except for the rash as described on the abdomen and arms. Differential diagnosis includes but is not limited to contact dermatitis, steroid rebound reaction, eczema, also consider the possibility of psoriasis but it does not have silvery plaques or involve the joints, considered pityriasis rosea but patient did not have a herald patch and the patches on the arms and abdomen are not completely consistent with this etiology. Rash is not petechial, no sloughing, no mucosal involvement, no bullae or vesicles. Negative Nikolsky. Rash is not pathognomonic for any dangerous etiology. I do not believe labs or imaging are indicated at this time. He does seem to have rebound reaction when he finishes steroids. I believe his rash is most likely eczematous initially stimulated by contact dermatitis from the change in detergent a few weeks ago and unfortunately poorly controlled since that time. I instructed him on prolonged steroid taper and prescribed prednisone for 20-day taper. I also instructed him on topical steroid taper to avoid topical steroid withdrawal symptoms. Also instructed him on appropriate moisturizers to be using. I also encouraged him to change his Zyrtec which he has been on for years to something different like Xyzal or Jazmin. He was referred to Dr. Mejia for outpatient follow-up with dermatology. Patient was given instructions on symptomatic management, follow up instructions, and return precautions for the emergency department. Patient indicated understanding and was discharged in stable condition. Critical Care Critical Care Time Critical Care Time: No
== END 2024-10-01 23:55 | disposition home or self-care (01) ==
PROVIDERS: Emergency Provider Emergency Medicine; PCP Nurse Practitioner
DX: L28.2 Other prurigo (principal); R21 Rash and other nonspecific skin eruption; F17.210 Nicotine dependence, cigarettes, uncomplicated
CPT/HCPCS: 99283